=== PATIENT | female | born 1950 | race Caucasian/White ===

== ENCOUNTER 2016-08-27 21:05 | Emergency (ER) | payer MEDICARE, OTHER ==
[~2016-08-27] VITALS: Ht 152.4 cm; Wt 96.5 kg
[2016-08-27 21:21] VITALS: Ht 152.4 cm; Wt 96.5 kg
[2016-08-27] MEDS ORDERED: ONDANSETRON 4 MG INJ IV STA (22:03)
[2016-08-27] MEDS ORDERED: morphine 4 MG/ML VIAL IV STA (22:03)
[2016-08-27 22:07] LABS: ADD SCAN DIFF NO
[2016-08-27 22:08] LABS: BASOPHIL # 0.1 10^3/ul (0.0-0.1); BASOPHILS % 0.4 % (0.0-2.0); EOSINOPHILS # 0.1 10^3/ul (0.0-0.5); EOSINOPHILS % 0.5 % (0.0-7.0); HEMATOCRIT 41.1 % (37.0-47.0); HEMOGLOBIN 13.9 g/dl (12.0-16.0); LYMPHOCYTES # 1.2 10^3/ul (0.8-2.9); MEAN CORPUSCULAR HEMOGLOBIN 30.3 pg (29.0-33.0); MEAN CORPUSCULAR HGB CONC 33.8 g/dl (32.0-37.0); MEAN CORPUSCULAR VOLUME 89.7 fl (82.0-101.0); MEAN PLATELET VOLUME 10.1 fl (7.4-10.4); MONOCYTE # 0.6 10^3/ul (0.3-0.9); MONOCYTES % 5.3 % (0.0-11.0); NEUTROPHIL # 9.9 10^3/ul (1.6-7.5); NEUTROPHILS % 83.5 % (39.0-77.0); PLATELET COUNT 254 10^3/UL (140-415); RED BLOOD COUNT 4.58 10^6/ul (4.20-5.40); WHITE BLOOD COUNT 11.9 10^3/ul (4.8-10.8)
[2016-08-27 22:23] LABS: INR 2.57; PROTIME 27.9 Sec (12.2-14.2); PT RATIO 2.2
[2016-08-27 22:24] LABS: PARTIAL THROMBOPLASTIN TIME 38.4 Sec (25.0-35.0)
[2016-08-27] MEDS ORDERED: WARF4TAB52 PO (22:28)
[2016-08-27] MEDS ORDERED: WARF3TAB PO (22:28)
[2016-08-27] MEDS ORDERED: LOVA20TA PO (22:28)
[2016-08-27] MEDS ORDERED: METO50TA16 PO (22:29)
[2016-08-27] MEDS ORDERED: FAMOTIDINE 20 MG INJ IV ONE (22:30)
[2016-08-27] MEDS ORDERED: LISI1TAB6 PO (22:30)
--- NOTE | 2016-08-27 22:30 | RADRPT ---
PROCEDURE: XR Chest. CLINICAL INDICATION: Shortness of breath. TECHNIQUE: AP Portable chest. COMPARISON: 01/22/2007 FINDINGS: There is moderate cardiomegaly. The lungs are clear. The osseous structures are unremarkable. IMPRESSION: No acute findings. RPTAT: HIKT .Lucas Weeks MD, Date Time Electronically viewed and signed by .Lucas Weeks MD, on 08/27/2016 22:30 .T/
[2016-08-27 22:40] LABS: ANION GAP 13 (8-16); BLOOD UREA NITROGEN 17 mg/dl (7-20); CALCIUM 9.2 mg/dl (8.4-10.2); CARBON DIOXIDE 29 mmol/L (21-31); CHLORIDE 98 mmol/L (97-110); CREATININE 0.76 mg/dl (0.44-1.00); GLUCOSE 168 mg/dl (70-220); POTASSIUM 3.4 mmol/L (3.5-5.1); SODIUM 137 mmol/L (135-144)
[2016-08-27 22:51] LABS: B-TYPE NATRIURETIC PEPTIDE 1890 PG/ML (0-125); TROPONIN-I < 0.012 ng/ml (0.00-0.12)
[2016-08-27] MEDS ORDERED: IOHEXOL 350MG/ML 50 ML BTL ONE (22:52)
[2016-08-27] MEDS ORDERED: IOHEXOL 100 ML ONE (22:52)
[2016-08-27] MEDS ORDERED: SOD CHLORIDE 0.9% 100 ML ONE (22:52)
[2016-08-27] MEDS ORDERED: HYDROmorphONE 1 MG/ML SYG IV ONE (22:57)
[2016-08-27] MEDS ORDERED: morphine 10 MG INJ IV ONE (23:00)
--- NOTE | 2016-08-27 23:46 | RADRPT ---
PROCEDURE: CT angiogram of the abdomen with and without contrast. CLINICAL INDICATION: Abdominal pain. TECHNIQUE: CT angiogram of the abdomen and pelvis with contrast was performed on a multi-detector high-resolution CT scanner. The patient was scanned before and after the uncomplicated administrat ion of 125 cc of Omnipaque 350 intravenous contrast. Images were obtained pre contrast, arterial and portal venous phase. Coronal and sagittal reformatted images were obtained from the axial source im ages. 3-D reformatted images were obtained. Images were reviewed on a high-resolution PACS workstati on. One or more of the following dose reduction techniques were used: - Automated exposure control. - Adjustment of the mA and/or kV according to patient size. - Use of iterative reconstruction technique. Exam CTD/vol = 23.14 mGy. Total exam DLP = 2804.40 mGy-cm. COMPARISON: None. FINDINGS: Evaluation of the lung bases demonstrates mild bibasilar atelectasis. Abdomen: The liver is normal in size with no focal mass identified. There is mild dilatation of th e biliary tree. The gallbladder is mildly distended and contains multiple gallstones. The spleen, pancreas and bilateral adrenal glands are within normal limits. Bilateral kidneys are normal in siz e with symmetric enhancement. There is no radiopaque renal or ureteral calculus identified. There is a cyst within the upper pole of the right kidney. There is no hydronephrosis or hydroureter. Th ere is no retroperitoneal adenopathy. The abdominal aorta is of normal caliber with mild scattered atherosclerotic calcifications. The celiac and superior mesenteric arteries are of normal course and caliber. Bilateral renal arteries are within normal limits. The inferior mesenteric artery is pat ent. There is no significant stenosis or occlusion. There is no evidence of aneurysm or dissection . There is no abnormal bowel wall thickening or distension. There is no bowel obstruction or free air . A normal appendix is identified. There is diffuse colonic diverticulosis without evidence of div erticulitis. There is no ascites. Pelvis: The bladder is unremarkable. The uterus and adnexa are within normal limits. There is no significant pelvic adenopathy or free fluid. Evaluation of the osseous structures demonstrates no suspicious lytic or blastic lesion. There is a severe compression deformity of the T12 vertebral body with vertebral planar deformity and mild bony retropulsion. There are mild compression deformities of the L2 and L3 vertebral bodies with up to 40% loss in vertebral body heights. There is diffuse demineralization. IMPRESSION: Mild vascular calcifications reflective of atherosclerosis. Otherwise unremarkable CT angiogram of the abdomen and pelvis. Distended gallbladder containing multiple gallstones. Clinical correlation is recommended and [facility] er evaluation can be made by ultrasound if clinically warranted. Mild biliary ductal dilatation. Diffuse colonic diverticulosis without evidence of diverticulitis. Right renal cyst. Severe compression deformity of T12 with mild bony retropulsion likely related to osteoporosis, age indeterminate. Mild compression deformities of L2 and L3 likely related to osteoporosis, ages indeterminate. .Jeb Stewart MD, Date Time Electronically viewed and signed by .Jeb Stewart MD, on 08/27/2016 23:46 .T/
[2016-08-28 00:34] LABS: ALBUMIN 4.2 g/dl (3.3-4.9); BILIRUBIN,INDIRECT 0.9 mg/dl (0-1.1); BILIRUBIN,TOTAL 0.9 mg/dl (0.2-1.3); TOTAL PROTEIN 8.1 g/dl (6.1-8.1)
--- NOTE | 2016-08-28 01:18 | RADRPT ---
PROCEDURE: Right upper quadrant ultrasound. CLINICAL INDICATION: Abdominal pain. TECHNIQUE: Multiple real-time longitudinal and transverse images of the right upper quadrant of th e abdomen were acquired utilizing a curved array transducer. Images were reviewed on a high-resoluti on PACS workstation. COMPARISON: CT of the abdomen and pelvis dated 08/27/2016. FINDINGS: The pancreas is not well seen. The liver is echogenic. The liver measures 18.2 cm in length. No hepatic lesion or intrahepatic bi liary ductal dilatation is seen. The portal vein is patent with hepatopetal flow. The gallbladder is distended. Sludge and multiple mobile stones are seen within the gallbladder lum en. The gallbladder wall is not thickened. There is no pericholecystic fluid. The common bile duct measures 8 mm in diameter, mildly dilated. A suggestion of parallel echogenic lines is seen in the region of the gallbladder. The right kidney measures 9.9 cm in length. Renal echogenicity is normal. There is no hydronephros is, urinary calculus, or renal mass. There is a 2.3 cm right renal cyst. The visualized portions of the aorta and IVC are unremarkable. IMPRESSION: 1. Distended gallbladder containing stones and multiple stones, but no evidence of cholecystitis. A suggestion of parallel echogenic lines is seen in the region of the gallbladder. This raises the possibility of a stent or drainage catheter in this region, although no such device is seen on the p rior CT. 2. Mildly dilated common bile duct (8 mm). This could be further evaluated with MRCP or ERCP, as cl inically warranted. 3. Hepatomegaly and fatty infiltration of the liver. 4. Poor visualization of the pancreas. RPTAT: HTAR .Marvin Marks MD, MD Date Time Electronically viewed and signed by .Marvin Marks MD, on 08/28/2016 01:18 .R/
--- NOTE | 2016-08-28 01:25 | ERD ---
ER Documentation Chief Complaint Date/Time DATE: 08/28/16 TIME: 01:21 Chief Complaint Epigastric pain since 1630 HPI This is a 66-year-old female who presents to the emergency room for evaluation of abdominal pain. The patient states that she has had abdominal pain for the past 5 hours. She localizes it to the midportion of abdomen states is a achy pain with no radiation. The patient states that she did take Pepcid for this and had no relief of her symptoms so she came to the emergency room for further evaluation. She denies any vomiting associated with this and denies any fevers or chest pain ROS All systems reviewed and are negative except as per history of present illness. Medications Home Meds Reported Medications Lisinopril/Hydrochlorothiazide (Lisinopril-Hctz 20-12.5 mg Tab) 1 Each Tablet, 1 EACH PO BID, TAB 08/27/16 Metoprolol Succinate* (Toprol XL*) 50 Mg Tab.er.24h, 50 MG PO DAILY, #30 TAB 08/27/16 Lovastatin* (Lovastatin*) 20 Mg Tablet, 20 MG PO HS, TAB 08/27/16 Warfarin Sodium* (Coumadin*) 3 Mg Tablet, 3 MG PO DAILY, TAB MON,WED,FRI,SAT,SUN 08/27/16 Warfarin Sodium* (Warfarin Sodium*) 4 Mg Tablet, 4 MG PO DAILY, TAB TUE,THUR 08/27/16 Allergies Allergies: Coded Allergies: No Known Allergy (Unverified , 08/27/16) PMhx/Soc Hx Cardiac Disorders: Yes (A-fib HTN) Hx Alcohol Use: No Hx Substance Use: No Hx Tobacco Use: No Smoking Status: Never smoker Physical Exam Vitals Vital Signs Date Time Temp Pulse Resp B/P Pulse Ox O2 Delivery O2 Flow Rate FiO2 08/27/16 23:38 79 12 120/85 99 Room Air 08/27/16 21:21 98.3 107 20 166/83 98 Physical Exam INITIAL VITAL SIGNS: Reviewed by me GENERAL: The patient is well developed and appropriate for usual state of health in no apparent distress HEENT: Pupils equal, round, and reactive to light. EOMI. There is no scleral icterus. NECK: C-spine is soft and supple, there is no meningismus. There is no cervical lymphadenopathy. LUNGS: Clear to auscultation bilaterally. There are no rales, wheezes or rhonchi. HEART: Regular rate and rhythm, no murmurs, clicks, rubs or gallops. ABDOMEN: Epigastric tenderness to palpation, negative Morrison sign, soft, non- tender, non-distended. There are bowel sounds in all four quadrants. No rebound or guarding. EXTREMITIES: There is no peripheral cyanosis or edema. No focal swelling or erythema. NEUROLOGICAL: The patient moves all four extremities with 5/5 strength. Cranial nerves II - XII are intact. Normal gait. Alert and oriented SKIN: There is no apparent rash or petechiae. HEME/LYMPHATIC: There is no evidence of excessive bruising or lymphedema. PSYCHIATRIC: The patient does not appear anxious or depressed. Result Diagram: 08/27/16213808/27/162138 Results 24 hrs Laboratory Tests Test 08/27/16 21:39 08/27/16 22:00 White Blood Count 11.910^3/ul Red Blood Count 4.5810^6/ul Hemoglobin 13.9g/dl Hematocrit 41.1% Mean Corpuscular Volume 89.7fl Mean Corpuscular Hemoglobin 30.3pg Mean Corpuscular Hemoglobin Concent 33.8g/dl Red Cell Distribution Width 12.0% Platelet Count 24121^3/UL Mean Platelet Volume 10.1fl Neutrophils % 83.5% Lymphocytes % 10.0% Monocytes % 5.3% Eosinophils % 0.5% Basophils % 0.4% Nucleated Red Blood Cells % 0.0/100WBC Neutrophils # 9.910^3/ul Lymphocytes # 1.210^3/ul Monocytes # 0.610^3/ul Eosinophils # 0.110^3/ul Basophils # 0.110^3/ul Nucleated Red Blood Cells # 0.010^3/ul Prothrombin Time 27.9Sec Prothrombin Time Ratio 2.2 INR International Normalized Ratio 2.57 Activated Partial Thromboplast Time 38.4Sec Sodium Level 137mmol/L Potassium Level 3.4mmol/L Chloride Level 98mmol/L Carbon Dioxide Level 29mmol/L Anion Gap 13 Blood Urea Nitrogen 17mg/dl Creatinine 0.76mg/dl Glucose Level 168mg/dl Calcium Level 9.2mg/dl Troponin I < 0.012ng/ml B-Type Natriuretic Peptide 1890PG/ML Total Bilirubin 0.9mg/dl Direct Bilirubin 0.00mg/dl Indirect Bilirubin 0.9mg/dl Aspartate Amino Transf (AST/SGOT) 28IU/L Alanine Aminotransferase (ALT/SGPT) 27IU/L Alkaline Phosphatase 82IU/L Total Protein 8.1g/dl Albumin 4.2g/dl Current Medications Medications (Trade) Dose Ordered Sig/Anali Route PRN Reason Start Time Stop Time Status Last Admin Dose Admin Morphine Sulfate (morphine) 4 mg ONCE STAT IV 08/27/16 22:03 08/27/16 22:04 DC 08/27/16 22:11 Famotidine (Pepcid Iv) 20 mg ONCE ONCE IV 08/27/16 22:30 08/27/16 22:31 DC 08/27/16 22:10 Ondansetron HCl (Zofran Inj) 4 mg ONCE STAT IV 08/27/16 22:03 08/27/16 22:04 DC 08/27/16 22:11 Morphine Sulfate (morphine) 6 mg ONCE ONCE IV 08/27/16 23:00 08/27/16 23:01 DC 08/27/16 22:39 IV Flush 10 ml 10 ml STK-MED ONCE .ROUTE 08/27/16 22:52 08/27/16 22:53 DC 08/27/16 23:11 Sodium Chloride 100 ml @ ud STK-MED ONCE .ROUTE 08/27/16 22:52 08/27/16 22:53 DC 08/27/16 23:11 Iohexol (Omnipaque) 100 ml @ ud STK-MED ONCE .ROUTE 08/27/16 22:52 08/27/16 22:53 DC 08/27/16 23:11 Iohexol (Omnipaque 350mg/ ml) 50 ml STK-MED ONCE .ROUTE 08/27/16 22:52 08/27/16 22:53 DC 08/27/16 23:11 Hydromorphone HCl (Dilaudid) 1 mg ONCE ONCE IV 08/27/16 22:57 08/27/16 23:01 DC 08/27/16 23:36 Procedures/MDM EKG: Rate/Rhythm: Atrial fibrillation QRS, ST, T-waves: [No changes consistent w/ acute ischemia] Impression: [No evidence of ischemia or arrhythmia] Chest X-ray 1V Interpreted by me: Soft Tissue: No acute abnormalities Bones: No acute abnormalities Mediastinum/Cardiac Silhouette/Lungs: [No acute abnormalities] CT a abdomen pelvis: Mild vascular calcifications reflective of atherosclerosis. Otherwise unremarkable CT angiogram of the abdomen and pelvis. Distended gallbladder containing multiple gallstones. Clinical correlation is recommended and further evaluation can be made by ultrasound if clinically warranted. Mild biliary ductal dilatation. Diffuse colonic diverticulosis without evidence of diverticulitis. Right renal cyst. Severe compression deformity of T12 with mild bony retropulsion likely related to osteoporosis, age indeterminate. Mild compression deformities of L2 and L3 likely related to osteoporosis, ages indeterminate. Ultrasound gallbladder: 1. Distended gallbladder containing stones and multiple stones, but no evidence of cholecystitis. A suggestion of parallel echogenic lines is seen in the region of the gallbladder. This raises the possibility of a stent or drainage catheter in this region, although no such device is seen on the prior CT. 2. Mildly dilated common bile duct (8 mm). This could be further evaluated with MRCP or ERCP, as clinically warranted. 3. Hepatomegaly and fatty infiltration of the liver. 4. Poor visualization of the pancreas. This 66-year-old female presents to the emergency room for evaluation of abdominal pain. When I evaluated this patient she was in atrial fibrillation. And she was complaining of abdominal pain which I elicited when I palpated the epigastric region. This patient did originally have lab work drawn including a troponin which was negative, and a chest x-ray. This patient was given morphine for pain however morphine did not improve her pain. She was given a second dose of morphine without resolution of her pain. At that point the patient was given 1 mg of Dilaudid. My concern at that time was for mesenteric ischemia as this patient's pain was slightly out of proportion to her examination and she does have a history of atrial fibrillation. CT a of the abdomen and pelvis reveals a distended gallbladder, with no mesenteric ischemia. I did obtain ultrasound of the gallbladder which did confirm distended gallbladder containing stones but no evidence of cholecystitis. This patient does have mildly dilated common bile duct at 8 mm however she has no elevations in the bilirubin or LFTs. My suspicion is that this patient is suffering from biliary colic secondary to gallstones. The patient will be discharged home at this time with a prescription for [place] for pain, and will be given a referral for outpatient general surgery. Advised her to return immediately to the emergency room if her pain were to worsen and she verbalized understanding. The patient's pain is under control at this time and she is ambulating in the ER without difficulty Departure Diagnosis: Primary Impression: Biliary colic Additional Impression: Gallstones without obstruction of gallbladder Condition: Stable MARIANN EISENBERG DO August 28, 2016 01:25
[2016-08-28] MEDS ORDERED: HYDR-906 PO (01:26)
[2016-08-28] MEDS ORDERED: ONDANSETRON 4 MG INJ IV STA (01:28)
[2016-08-28 01:29] LABS: ADD UMIC YES; URINE BILIRUBIN (Dip) NEGATIVE (NEGATIVE); URINE BLOOD (Dip) TRACE (NEGATIVE); URINE COLOR LT. YELLOW (YELLOW); URINE GLUCOSE (Dip) NEGATIVE (NEGATIVE); URINE KETONES (Dip) NEGATIVE (NEGATIVE); URINE LEUKOCYTE ESTERASE (Dip) NEGATIVE (NEGATIVE); URINE NITRITE (Dip) NEGATIVE (NEGATIVE); URINE TOTAL PROTEIN (Dip) NEGATIVE (NEGATIVE); URINE UROBILINOGEN (Dip) 2.0 E.U./dL (0.1-1.0)
[2016-08-28] MEDS ORDERED: ONDA4TAB8 PO (01:29)
[2016-08-28 01:40] LABS: SQUAMOUS EPITHELIAL CELL,UR OCCASIONAL; URINE RBCS 0-2 /HPF (0)
[2016-08-28 01:52] VITALS: BP 115/78; PULSE 78; RESP 12; TEMP 98.1
== END 2016-08-28 01:54 | disposition home or self-care (01) ==
LOC: E/R 21:05
DX: K80.70 Calculus of gallbladder and bile duct without cholecystitis without obstruction (principal); I10 Essential (primary) hypertension; Z79.01 Long term (current) use of anticoagulants
CPT/HCPCS: 36415; 71010; 75635; 76705; 80048; 80076; 81001; 83880; 84484; 85025; 85610; 85730; 96374; 96375; 96376; 99285; J1170; J2270; J2405; Q9967; 81003; 93005

== ENCOUNTER 2016-12-22 00:11 | Inpatient (IN) | payer MEDICARE, MEDICAID ==
[~2016-12-22] VITALS: Ht 175.3 cm; Wt 89.4 kg
[~2016-12-22 00:11] MED LIST: HYDR-906 PO; LISI1TAB6 PO; LOVA20TA PO; METO50TA16 PO; ONDA4TAB8 PO; WARF3TAB PO; WARF4TAB52 PO
[2016-12-22] MEDS ORDERED: SOD CHLORIDE 0.9% 500 ML IV STA (04:22)
[2016-12-22] MEDS ORDERED: ONDANSETRON 4 MG INJ IV STA (04:22)
[2016-12-22] MEDS ORDERED: morphine 4 MG/ML VIAL IV STA (04:22)
--- NOTE | 2016-12-22 04:56 | RADRPT ---
PROCEDURE: ULTRASOUND LIMITED ABDOMEN CLINICAL INDICATION: 66-year-old female with abdominal pain. TECHNIQUE: Multiple sonographic of the right upper quadrant of the abdomen were obtained. The imag es were reviewed on a PACS workstation. COMPARISON: Right upper quadrant ultrasound August 28, 2016. FINDINGS: The pancreas is not well visualized secondary to overlying bowel gas. The liver displays diffuse increase echogenicity consistent with fatty infiltration. The liver measu res 18.4 cm in length. No evidence of intrahepatic biliary ductal dilatation is seen. The portal an d hepatic veins are unremarkable. The gallbladder contains multiple small shadowing stones. The gallbladder wall thickness is at the upper limits of normal measuring 3.0 mm. No pericholecystic fluid is seen. The common bile duct connie ures 8.7 mm and is dilated. The right kidney displays normal echogenicity. The right kidney measures 9.2 cm in maximal length. N o caliectasis or hydronephrosis is seen. There is a right upper pole renal cyst measuring 2.7 x 2.2 x 2.0 cm. No free fluid is seen. IMPRESSION: 1. Hepatic steatosis. 2. Cholelithiasis with dilated common bile duct. 3. Right renal cyst. .Rehna Deluna MD, MD Date Time Electronically viewed and signed by .Rehan Deluna MD, on 12/22/2016 04:56 .Echo/
[2016-12-22 06:46] LABS: BASOPHIL # 0.1 10^3/ul (0.0-0.1); BASOPHILS % 0.7 % (0.0-2.0); EOSINOPHILS # 0.1 10^3/ul (0.0-0.5); EOSINOPHILS % 1.1 % (0.0-7.0); HEMATOCRIT 41.2 % (37.0-47.0); HEMOGLOBIN 13.4 g/dl (12.0-16.0); LYMPHOCYTES # 1.4 10^3/ul (0.8-2.9); LYMPHOCYTES % 16.8 % (15.0-51.0); MEAN CORPUSCULAR HEMOGLOBIN 28.2 pg (29.0-33.0); MEAN CORPUSCULAR HGB CONC 32.5 g/dl (32.0-37.0); MEAN CORPUSCULAR VOLUME 86.7 fl (82.0-101.0); MEAN PLATELET VOLUME 10.5 fl (7.4-10.4); MONOCYTE # 0.6 10^3/ul (0.3-0.9); MONOCYTES % 6.9 % (0.0-11.0); NEUTROPHILS % 74.3 % (39.0-77.0); PLATELET COUNT 240 10^3/UL (140-415); RED BLOOD COUNT 4.75 10^6/ul (4.20-5.40); RED CELL DISTRIBUTION WIDTH 12.8 % (11.5-14.5); WHITE BLOOD COUNT 8.4 10^3/ul (4.8-10.8)
--- NOTE | 2016-12-22 06:54 | ERA ---
ER Documentation Chief Complaint Date/Time DATE: 12/22/16 TIME: 06:51 Chief Complaint c/o upper mid abdominal pain no N/V/D. Hx: gallstones HPI This is a 66-year-old female history of gallstones who presents to the emergency room with epigastric and right upper quadrant abdominal pain for the past 24 hours. She describes moderate to severe pain that is colicky and a little bit more constant but alleviated by morphine. She denies any back pain chest pain, pleuritic pain, fevers or chills. The patient has followed up with a surgeon, Dr. Tyler Martin several months ago but has not had follow-up after. ROS All systems reviewed and are negative except as per history of present illness. Medications Home Meds Reported Medications Lisinopril/Hydrochlorothiazide (Lisinopril-Hctz 20-12.5 mg Tab) 1 Each Tablet, 1 EACH PO BID, TAB 08/27/16 Metoprolol Succinate* (Toprol XL*) 50 Mg Tab.er.24h, 50 MG PO DAILY, #30 TAB 08/27/16 Lovastatin* (Lovastatin*) 20 Mg Tablet, 20 MG PO HS, TAB 08/27/16 Warfarin Sodium* (Coumadin*) 3 Mg Tablet, 3 MG PO DAILY, TAB MON,WED,FRI,SAT,SUN 08/27/16 Warfarin Sodium* (Warfarin Sodium*) 4 Mg Tablet, 4 MG PO DAILY, TAB TUE,THUR 08/27/16 Discontinued Scripts Ondansetron Hcl* (Zofran*) 4 Mg Tablet, 4 MG PO Q8H Y for NAUSEA AND/OR VOMITING , #12 TAB Prov:MARIANN EISENBERG DO 08/28/16 Hydrocodone/Acetaminophen ([place] 5-325 Tablet) 1 Each Tablet, 1 TAB PO Q6H Y for PAIN, #15 TAB Prov:MARIANN EISENBERG DO 08/28/16 Allergies Allergies: Coded Allergies: No Known Allergy (Unverified , 08/27/16) PMhx/Soc Hx Cardiac Disorders: Yes (A-fib HTN) Hx Miscellaneous Medical Probl: Yes (gallstones) Hx Alcohol Use: No Hx Substance Use: No Hx Tobacco Use: No Smoking Status: Never smoker FmHx Family History: No diabetes Physical Exam Vitals Vital Signs Date Time Temp Pulse Resp B/P Pulse Ox O2 Delivery O2 Flow Rate FiO2 12/22/16 06:48 97 20 139/100 98 Room Air 12/22/16 00:38 97.8 105 20 146/79 95 Physical Exam General: Well developed, well nourished, no acute distress Head: Normocephalic, atraumatic. Eyes: Pupils equally reactive, EOM intact ENT: Moist mucous membranes Neck: Supple, no lymphadenopathy Respiratory: Lungs clear bilaterally, no distress Cardiovascular: RRR, no murmurs, rubs, or gallops Abdominal: Soft, Mild tenderness to the epigastrium without rebound or guarding , negative Morrison sign : Deferred MSK: No edema, no unilateral swelling, 5/5 strength Neurologic: Alert and oriented, moving all extremities, normal speech, no focal weakness, no cerebellar signs Skin: No rash Psych: Normal mood Result Diagram: 12/22/16 0546 12/22/16 0546 Results 24 hrs Laboratory Tests Test 12/22/16 05:46 White Blood Count 8.410^3/ul Red Blood Count 4.7510^6/ul Hemoglobin 13.4g/dl Hematocrit 41.2% Mean Corpuscular Volume 86.7fl Mean Corpuscular Hemoglobin 28.2pg Mean Corpuscular Hemoglobin Concent 32.5g/dl Red Cell Distribution Width 12.8% Platelet Count 74386^3/UL Mean Platelet Volume 10.5fl Neutrophils % 74.3% Lymphocytes % 16.8% Monocytes % 6.9% Eosinophils % 1.1% Basophils % 0.7% Nucleated Red Blood Cells % 0.0/100WBC Neutrophils # (Manual) 6.210^3/ul Lymphocytes # 1.410^3/ul Monocytes # 0.610^3/ul Eosinophils # 0.110^3/ul Basophils # 0.110^3/ul Nucleated Red Blood Cells # 0.010^3/ul Sodium Level 142mmol/L Potassium Level 3.8mmol/L Chloride Level 99mmol/L Carbon Dioxide Level 28mmol/L Anion Gap 19 Blood Urea Nitrogen 15mg/dl Creatinine 1.08mg/dl Glucose Level 119mg/dl Calcium Level 9.7mg/dl Total Bilirubin 1.1mg/dl Direct Bilirubin 0.20mg/dl Indirect Bilirubin 0.9mg/dl Aspartate Amino Transf (AST/SGOT) 407IU/L Alanine Aminotransferase (ALT/SGPT) 155IU/L Alkaline Phosphatase 125IU/L Total Protein 8.6g/dl Albumin 4.3g/dl Globulin 4.30g/dl Albumin/Globulin Ratio 1.00 Lipase 66U/L Current Medications Medications (Trade) Dose Ordered Sig/Anali Route PRN Reason Start Time Stop Time Status Last Admin Dose Admin Sodium Chloride (NS) 500 ml @ 500 mls/hr Q1H STAT IV 12/22/16 04:22 12/22/16 05:21 DC 12/22/16 04:22 Morphine Sulfate (morphine) 4 mg ONCE STAT IV 12/22/16 04:22 12/22/16 04:23 DC 12/22/16 05:53 Ondansetron HCl (Zofran Inj) 4 mg ONCE STAT IV 12/22/16 04:22 12/22/16 04:23 DC 12/22/16 04:22 Ondansetron HCl (Zofran Inj) 4 mg BRIDGE ORDER PRN IV NAUSEA AND/OR VOMITING 12/22/16 08:30 12/23/16 08:29 Acetaminophen (Tylenol Tab) 650 mg ER BRIDGE PRN PO MILD PAIN/FEVER 12/22/16 08:30 12/23/16 08:29 Procedures/MDM EKG, MONITORS, & DIAGNOSTIC IMAGING: EKG: I reviewed and interpreted a 12-lead EKG. Rhythm: Atrial fibrillation, rate controlled ectopy: None Intervals: No abnormalities ST segments: No elevations or depressions T waves: No contiguous inversions Gallbladder ultrasound: IMPRESSION: 1. Hepatic steatosis. 2. Cholelithiasis with dilated common bile duct. 3. Right renal cyst. LAB INTERPRETATION: Transaminitis without hyperbilirubinemia or lipase elevation consistent with likely choledocholithiasis MEDICAL DECISION MAKING: The patient presents with signs and symptoms concerning for biliary colic. Also consider choledocholithiasis versus early acute cholecystitis. Low clinical concern for cardiopulmonary process. The patient will benefit from laboratory analysis, low threshold for hospitalization. The patient's ultrasound shows evidence of dilated common bile duct concerning for choledocholithiasis. The patient will likely require inpatient hospitalization with GI consultation and general surgery consultation. The patient's pain is controlled with morphine given prior to my arrival. The patient is also found to be in new onset atrial fibrillation that is rate controlled. Risk stratification for anticoagulation as an inpatient would be appropriate. ER COURSE: The patient's pain is improved with pain medication given prior to my arrival. The patient is asymptomatic. Her laboratory testing and diagnostic imaging suggest choledocholithiasis. The patient is seen Dr. Martin in the past. I spoke to her primary care physician who recommends Dr. Witt for gastroenterology. The consult will be made and inpatient hospitalization for MRCP, ERCP and consideration for cholecystectomy will be commenced. I kept the patient and/or family informed of laboratory and diagnostic imaging results throughout the emergency room course. DISPOSITION PLAN: Medical surgical admission for management of choledocholithiasis CONSULTATION: Accepting care team and consultations: I discussed the current laboratory data, diagnostic imaging and emergency care provided. Admitting team: Dr. Burch Admitting team indication: Insurance directed Consulting services: Gastroenterology, Dr. Witt, general surgery Dr. Martin Departure Diagnosis: Primary Impression: Choledocholithiasis Additional Impression: Transaminitis Condition: Stable TERESO MITCHELL MD Dec 22, 2016 06:54
[2016-12-22 06:58] LABS: ALBUMIN 4.3 g/dl (3.3-4.9); BILIRUBIN,DIRECT 0.2 mg/dl (0.00-0.20); BILIRUBIN,INDIRECT 0.9 mg/dl (0-1.1); BILIRUBIN,TOTAL 1.1 mg/dl (0.2-1.3); CALCIUM 9.7 mg/dl (8.4-10.2); CREATININE 1.08 mg/dl (0.44-1.00); POTASSIUM 3.8 mmol/L (3.5-5.1); TOTAL PROTEIN 8.6 g/dl (6.1-8.1)
[2016-12-22 08:22] LABS: TROPONIN-I < 0.012 ng/ml (0.00-0.12)
[2016-12-22 08:24] LABS: T3 UPTAKE 37.9 % (23.5-40.5)
[2016-12-22] MEDS ORDERED: ACETAMINOPHEN 325 MG TAB PO PRN ×2 (08:30→13:00)
[2016-12-22] MEDS ORDERED: ONDANSETRON 4 MG INJ IV PRN (08:30)
[2016-12-22 09:09] LABS: ADD UMIC YES; UR ASCORBIC ACID NEGATIVE (NEGATIVE); UR BILIRUBIN (Dip) NEGATIVE (NEGATIVE); UR BLOOD (Dip) 1+ mg/dL (NEGATIVE); UR CLARITY CLEAR (CLEAR); UR COLOR YELLOW (YELLOW); UR GLUCOSE (Dip) NEGATIVE (NEGATIVE); UR KETONES (Dip) NEGATIVE (NEGATIVE); UR LEUKOCYTE ESTERASE (Dip) NEGATIVE Leu/ul (NEGATIVE); UR NITRITE (Dip) NEGATIVE (NEGATIVE); UR RBC 1 /HPF (0-5); UR SPECIFIC GRAVITY (Dip) 1.011 (1.003-1.030); UR TOTAL PROTEIN (Dip) NEGATIVE (NEGATIVE); UR UROBILINOGEN (Dip) 2+ mg/dL (NEGATIVE)
[2016-12-22 09:14] LABS: INR 3.03; PARTIAL THROMBOPLASTIN TIME 42.4 Sec (25.0-35.0); PROTIME 31.8 Sec (12.2-14.2); PT RATIO 2.5
[2016-12-22] MEDS ORDERED: PHYTONADIONE 5 MG in DEXTROSE 5% 50 ML IVPB ONE (13:00)
[2016-12-22] MEDS ORDERED: hydrALAzine 20 MG INJ IV PRN (13:00)
[2016-12-22] MEDS: SOD CHLORIDE 0.9% 1,000 ML IV SCH (13:00)
[2016-12-22] MEDS ORDERED: LORAZEPAM 2 MG INJ IV PRN (13:00)
--- NOTE | 2016-12-22 15:36 | HP ---
DATE OF ADMISSION: 12/22/2016 ADMITTING DIAGNOSIS: Choledocholithiasis, abdominal pain. HISTORY OF PRESENT ILLNESS: The patient is a 66-year-old, female with chronic atrial fibrillation, hypertension, asthma, lumbar radiculopathy, who presented to the emergency room with acute onset of abdominal pain, nausea and vomiting. The patient has known cholelithiasis, but has been doing well without abdominal pain in the last 2 months. The patient was in usual state of health when she felt the acute onset of the abdominal pain which brought her to the emergency room. The patient was found to have elevated liver function tests by laboratory examination, as well as a dilated common bile duct by gallbladder ultrasound. REVIEW OF SYSTEMS: Unremarkable. No chest pain or shortness of breath. No palpitations. No orthopnea. No fevers, chills, or night sweats. No diarrhea or constipation. No dizziness. No headache. No visual problems. PAST MEDICAL HISTORY: Chronic atrial fibrillation, hypertension, asthma, lumbar radiculopathy, hyperlipidemia, osteoarthritis, and history of meniscal tear. PAST SURGICAL HISTORY: None, except for times 1. FAMILY HISTORY: Unremarkable. SOCIAL HISTORY: Patient is , lives with her . No tobacco. No alcohol use. MEDICATIONS: 1. Lisinopril/hydrochlorothiazide 20/12.5 p.o. b.i.d. 2. Metoprolol-XL 50 mg daily. 3. Simvastatin 20 mg daily. 4. Warfarin 3 mg daily. PHYSICAL EXAMINATION: VITAL SIGNS: Temperature 97.8, pulse 105 on admission, respirations 20, blood pressure 146/79, and pulse oximetry 95 percent on room air. GENERAL: Well-developed, well-nourished female, in no acute distress. Lying on a gurney. SKIN: Without rashes. HEENT: Anicteric sclerae. Extraocular muscles intact. Oropharynx clear without exudate. NECK: No jugular venous distention. 2+ carotid upstrokes, without bruits. No thyromegaly. No lymphadenopathy. CHEST: Clear to auscultation bilaterally. HEART: Irregularly irregular with a 1/6 holosystolic murmur. No S3, no S4. ABDOMEN: Moderate right upper quadrant and epigastric tenderness to palpation. No rebound. Equivocal Morrison sign. Normoactive bowel sounds. Nondistended, moderate obesity. GENITOURINARY: External within normal limits. Internal exam not performed. EXTREMITIES: No cyanosis, clubbing. There is trace bilateral lower extremity edema with medium to large varices, bilateral lower extremities. NEUROLOGIC: Nonfocal. LABORATORY EXAMINATION: Sodium 142, potassium 3.8, chloride 99, bicarbonate 28, BUN 15, creatinine 1.08, glucose 119, calcium 9.7, and total bilirubin 1.1. AST 407, ALT 155, and alkaline phosphatase 125. Troponin less than 0.012. Total protein 8.6, albumin 4.3. Free T4 is 4.24, T4 is 11.2, and lipase is 66. PT is 31.8, INR is 3.03and PTT is 42.4. White blood cell count 8.4, hemoglobin 13.4, hematocrit 41.2, and platelets 240. Urinalysis shows 2 plus urobiligen, 1 plus hemoglobin, otherwise unremarkable. Gallbladder ultrasound shows multiple stones with gallbladder wall thickness at the upper limits of normal. No pericholecystic fluid. The common bile duct measured 8.7 mm and is dilated. ASSESSMENT AND PLAN: The patient is a 66-year-old, female with chronic atrial fibrillation, hypertension, hyperlipidemia, lumbar radiculopathy with possible choledocholithiasis with elevated liver tests, dilated common bile duct with known cholelithiasis. Patient will be admitted to telemetry for further evaluation and treatment. 1. Abdominal pain, possible choledocholithiasis. Appreciate Dr. Witt's input into this case. Patient will undergo MRCP to evaluate for possible stone and if present the patient will need ERCP with possible stent and stone removal. We will also have Dr. Martin from General Surgery evaluated the patient for possible future cholecystectomy. We will give morphine for pain control. Zofran for nausea and vomiting and IV fluids. 2. Chronic atrial fibrillation/hypertension. We will continue the patient's routine medications. We will give vitamin K times one 5 mg because of coagulopathy and Coumadin and the need for procedures. We will give p.r.n. hydralazine for elevated blood pressures. 3. Hyperlipidemia. Continue diet, but hold off on her simvastatin for now. Dictated By: Gutierrez Burch MD /aide/cristiano /Document#: [id number]
--- NOTE | 2016-12-22 18:08 | RADRPT ---
PROCEDURE: MRCP CLINICAL INDICATION: Abdominal pain TECHNIQUE: MRCP was performed on the a high-resolution, high Marija field strength scanner. Patien t was examined without contrast. 3-D coronal rotating MIP images of the biliary tree are available for review. COMPARISON: None FINDINGS: The liver is normal in size and signal intensity. No focal liver lesions or intrahepatic biliary di latation is seen. Multiple gallstones are seen. Mild to moderate intrahepatic biliary dilatation i s seen. The common bile duct is also dilated measuring approximately 12.8 mm.No filling defect in t he common bile duct is seen. Fatty atrophy of the pancreas is seen. The pancreas otherwise normal in size and signal intensity. The pancreatic duct is normal in caliber. No pancreatic mass is seen. A right renal cyst is seen measuring approximately 3 cm in size. The spleen, adrenal glands, and kidneys otherwise unremarkable in size and signal intensity. The kidneys are normal in size and contour and are without evidence of hydronephrosis. No abnormally enlarged lymph nodes or fluid collections are seen. Scattered colon ic diverticulosis is seen. IMPRESSION: 1. Cholelithiasis. 2. Mild to moderate international hepatic biliary dilatation without definite evidence of an obstru cting stone. The possibility of passed stone or ampullary mass cannot be excluded. Consider further evaluation with ERCP as clinically warranted. 3. Colonic diverticulosis. RPTAT: HPNM Physician Renaldo Date Time Electronically viewed and signed by Physician Renaldo on 12/22/2016 18:08 /
[2016-12-22 19:32] VITALS: Ht 175.3 cm; Wt 89.4 kg
[2016-12-22 20:00] VITALS: BP 123/71; PULSE 94; RESP 18
[2016-12-23 05:30] VITALS: BP 119/72; RESP 19
[2016-12-23] MEDS: SOD CHLORIDE 0.9% 1,000 ML IV SCH ×3 (06:22→15:26)
[2016-12-23] MEDS ORDERED: PROPOFOL 200 MG INJ ONE (07:00)
[2016-12-23] MEDS ORDERED: ROCURONIUM 50 MG INJ ONE (07:00)
[2016-12-23 07:37] LABS: BASOPHILS % 0.6 % (0.0-2.0); EOSINOPHILS # 0.2 10^3/ul (0.0-0.5); EOSINOPHILS % 4.3 % (0.0-7.0); HEMATOCRIT 36.1 % (37.0-47.0); HEMOGLOBIN 11.7 g/dl (12.0-16.0); LYMPHOCYTES # 1.2 10^3/ul (0.8-2.9); LYMPHOCYTES % 21.8 % (15.0-51.0); MEAN CORPUSCULAR HEMOGLOBIN 28.7 pg (29.0-33.0); MEAN CORPUSCULAR HGB CONC 32.4 g/dl (32.0-37.0); MEAN CORPUSCULAR VOLUME 88.5 fl (82.0-101.0); MEAN PLATELET VOLUME 10.1 fl (7.4-10.4); MONOCYTE # 0.4 10^3/ul (0.3-0.9); MONOCYTES % 8.3 % (0.0-11.0); PLATELET COUNT 188 10^3/UL (140-415); RED BLOOD COUNT 4.08 10^6/ul (4.20-5.40); RED CELL DISTRIBUTION WIDTH 12.7 % (11.5-14.5); WHITE BLOOD COUNT 5.3 10^3/ul (4.8-10.8)
[2016-12-23 07:46] VITALS: BP 116/71; RESP 19
[2016-12-23 07:52] LABS: INR 1.48; PT RATIO 1.4
[2016-12-23 07:59] LABS: ALBUMIN 3.4 g/dl (3.3-4.9); ALBUMIN/GLOBULIN RATIO 0.97; CALCIUM 8.4 mg/dl (8.4-10.2); CREATININE 0.84 mg/dl (0.44-1.00); POTASSIUM 4.1 mmol/L (3.5-5.1); TOTAL PROTEIN 6.9 g/dl (6.1-8.1)
[2016-12-23] MEDS ORDERED: PHYTONADIONE 10 MG/ML INJ SC ONE (08:30)
[2016-12-23] MEDS: PIPER-TAZO 3.375 GM IV (PMX) 100 ML IVPB SCH ×2 (08:44→14:20)
[2016-12-23] MEDS: METOPROLOL (XL) 50 MG TAB PO SCH (08:46)
[2016-12-23] MEDS: LISINOPRIL 20 MG TAB PO SCH (08:46)
--- NOTE | 2016-12-23 10:22 | PN ---
DATE: 12/23/2016 SUBJECTIVE: Patient is feeling better. No nausea, vomiting, less abdominal pain. OBJECTIVE: VITAL SIGNS: Temperature 97.0, blood pressure 116/71, pulse of 83, respirations 19, pulse oximetry 98 percent on room air. GENERAL: Well-developed, well-nourished female, in no acute distress. CHEST: Clear to auscultation bilaterally. HEART: Irregularly irregular. 2/6 holosystolic murmur. ABDOMEN: Mild epigastric and right upper quadrant tenderness. No rebound. Negative Morrison's. Normal active bowel sounds. LABORATORY EXAMINATION: White blood cell count 5.3, hemoglobin 11.7, hematocrit 36.1, platelets 188. INR of 1.48, PTT of 36. Sodium 144, potassium 4.1, chloride 104, bicarbonate 27, BUN of 16, creatinine 0.84. Total bilirubin 2.0. AST of 228, ALT of 231, alkaline phos 103, albumin 3.4. ASSESSMENT AND PLAN: 1. Choledocholithiasis. Patient with improved liver function tests. Numbers which may suggest passing of the stone. Patient is to undergo ERCP today. Await Dr. Martin's evaluation from a surgical standpoint as the patient will eventually need a cholecystectomy at some point. Continue antibiotics, p.r.n. morphine, as well as Zofran for nausea. 2. Hypertension/atrial fibrillation. Remains stable. Continue patient's medications. Dictated By: Gutierrez Burch MD /aide/roopa /Document#: [id number]
--- NOTE | 2016-12-23 11:37 | CONS ---
Date/Time of Note Date/Time of Note DATE: 12/23/16 TIME: 11:13 Assessment/Plan Assessment/Plan Chief Complaint/Hosp Course 1. Cholelithiasis, possible choledocholithiasis: MRCP shows dilated duct, LFT's elevated, Tbili elevated today; patient with pain epigastric -ERCP today -poss lap romie tomorrow -pain management -ivf -npo 2. Abdominal pain 2/2 above: no n/v -pain management -as above 3. Transaminitis: 2/2 #1, improving -ivf -npo -as above 4. Chronic afib: controlled, on coumadin outpatient -medical management 5. Coagulopathy: on coumadin; received vitamin K; inr improved 6. Hypertension -medical management -encourage weight loss 7. Constipation: -optimize bowel regimen 8. Hypochromic anemia: dilutional vs. other: no acute bleed -monitor and transfuse prn 9. Overweight: BMI: 29 -encourage lifestyle and diet optimization -encourage weight loss 10. Hyperlipidemia: -continue medical management Thank you. Patient seen and examined in collaboration with Dr. Jaime Martin. Problems: Consultation Date/Type/Reason Admit Date/Time Dec 22, 2016 at 09:07 Date of Consultation: Dec 23, 2016 Type of Consultation: surgical Reason for Consultation cholelithiasis; possible choledocholithiasis Referring Provider: DANAE THORNTON MD- Hx of Present Illness Thelma Singh is a 66 yo woman who presents to the ED with complaints of midepigastric pain that began tuesday night a few hours after dinner. She describes the pain as sharp, stabbing, non-radiating and similar to pain that she experienced in August when she was diagnosed with gallstones. the pain became severe that she decided to go to the ED. She denies vomiting but had significant nausea. She denies fevers, chills, chest pain, palpitations, shortness of breath, congested cough, diarrhea or dysuria. MRI shows gallstones and biliary dilatation. Further, she has elevated LFT's. General surgery was called to evaluate. Constitutional: improved, No chills, No febrile Eyes: No visual change ENT: No dysphagia Respiratory: No cough, No shortness of breath Cardiovascular: edema (min pedal), No chest pain, No lightheadedness, No palpitations Gastrointestinal: constipation, flatus, nausea, No diarrhea, No vomiting Genitourinary: No dysuria, No hematuria Musculoskeletal: No back pain Skin: No bruising, No erythema Neurologic: No confusion, No dizziness Psychological: nl mood/affect, No anxiety Past Medical History hypertension Afib constipation Overweight high cholesterol Past Surgical History Family History Significant Family History: no pertinent family hx Social History Alcohol Use: occasionally Smoking Status: Never smoker Drug Use: none Exam/Review of Systems Vital Signs Vitals Vital Signs Date Time Temp Pulse Resp B/P Pulse Ox O2 Delivery O2 Flow Rate FiO2 12/23/16 07:46 97.0 83 19 116/71 98 12/22/16 20:00 Room Air Intake and Output 12/22/16 12/22/16 12/23/16 15:00 23:00 07:00 Intake Total 50.5 ml Balance 50.5 ml Exam Constitutional: alert, oriented Psych: nl mood/affect Head: atraumatic, normocephalic Eyes: nl lids, nl sclera, No icteric ENMT: mucosa pink and moist, nl nasal mucosa & septum Neck: non-tender, supple, No jvd Respiratory: clear to auscultation, normal air movement Cardiovascular: irregular rhythm, nl pulses, No regular rate and rhythm Gastrointestinal: bowel sounds, soft, tender (epigastric), No rebound or guarding Musculoskeletal: nl extremities to inspection, nl gait and stance Extremities: normal pulses, pitting pedal edema (+1) Neurological: nl mental status, nl speech, nl strength Skin: nl turgor, No rash or lesions Results Result Diagram: 12/23/1670312/23/16 0704 Results 24 hrs Laboratory Tests Test 12/23/16 07:04 White Blood Count 5.3 # Red Blood Count 4.08 L Hemoglobin 11.7 L Hematocrit 36.1 L Mean Corpuscular Volume 88.5 Mean Corpuscular Hemoglobin 28.7 L Mean Corpuscular Hemoglobin Concent 32.4 Red Cell Distribution Width 12.7 Platelet Count 188 # Mean Platelet Volume 10.1 Neutrophils % 65.0 Lymphocytes % 21.8 Monocytes % 8.3 Eosinophils % 4.3 Basophils % 0.6 Nucleated Red Blood Cells % 0.0 Neutrophils # (Manual) 3.5 Lymphocytes # 1.2 Monocytes # 0.4 Eosinophils # 0.2 Basophils # 0.0 Nucleated Red Blood Cells # 0.0 Prothrombin Time Pending Prothrombin Time Ratio 1.4 INR International Normalized Ratio 1.48 Activated Partial Thromboplast Time 36.0 H Sodium Level 144 Potassium Level 4.1 Chloride Level 104 Carbon Dioxide Level 27 Anion Gap 17 H Blood Urea Nitrogen 16 Creatinine 0.84 Glucose Level 86 Calcium Level 8.4 Total Bilirubin 2.0 H Direct Bilirubin 0.00 # Indirect Bilirubin 2.0 H Aspartate Amino Transf (AST/SGOT) 228 H Alanine Aminotransferase (ALT/SGPT) 231 H Alkaline Phosphatase 103 Total Protein 6.9 # Albumin 3.4 Globulin 3.50 H Albumin/Globulin Ratio 0.97 Medications Medications Current Medications Metoprolol Succinate (Toprol Xl) 50 mg DAILY PO Last administered on 12/23/16 08:46; Admin Dose 50 MG; Start 12/23/16 at 09:00 Lisinopril (Zestril) 20 mg AM PO Last administered on 12/23/16 08:46; Admin Dose 20 MG; Start 12/23/16 at 09:00 Ondansetron HCl (Zofran Inj) 4 mg Q4 PRN IV NAUSEA AND/OR VOMITING; Start 12/22 at 13:00 Morphine Sulfate (morphine) 2 mg Q3 PRN IV PAIN LEVEL 6-10; Start 12/22/16 at 13:00 Hydralazine HCl (Apresoline) 5 mg Q6 PRN IV sbp>180 or dbp>95; Start 12/22/16 at 13:00 Acetaminophen (Tylenol Tab) 650 mg Q6 PRN PO PAIN AND OR ELEVATED TEMP; Start 12/22/16 at 13:00 Lorazepam 0.5 mg 0.5 mg HS PRN IV insomnia; Start 12/22/16 at 13:00 Sodium Chloride 1,000 ml @ 100 mls/hr Q10H IV Last administered on 12/23/16 06:22; Admin Dose 100 MLS/HR; Start 12/22/16 at 13:00 Piperacillin Sod/ Tazobactam Sod (Zosyn 3.375gm/ 100 ml (Pmx)) 100 ml @ 200 mls /hr Q8 IVPB Last administered on 12/23/16 08:44; Admin Dose 200 MLS/HR; Start 12/23/16 at 07:00 TOMMY THACKER NP Dec 23, 2016 11:24
[2016-12-23] MEDS ORDERED: IOHEXOL 300MG/ML 30 ML BTL ONE (11:38)
[2016-12-23] MEDS ORDERED: MIDAZOLAM 1 MG/ML 2 ML INJ ONE (11:42)
[2016-12-23] MEDS ORDERED: FENTAnyl 50 MCG/ML VIAL ONE (11:42)
[2016-12-23] MEDS ORDERED: CEFAZOLIN 1 GM INJ ONE (11:58)
[2016-12-23] MEDS ORDERED: PHENYLephrine (100 MCG/ML) 5ML SYG ONE (11:58)
[2016-12-23] MEDS ORDERED: METOCLOPRAMIDE 10 MG INJ ONE (12:18)
[2016-12-23] MEDS ORDERED: SUGAMMADEX SODIUM 200 MG/2 ML VIAL IV ONE (12:18)
[2016-12-23] MEDS ORDERED: DEXAMETHASONE 4 MG/ML 1 ML INJ ONE (12:18)
[2016-12-23] MEDS ORDERED: ONDANSETRON 4 MG INJ ONE (12:18)
--- NOTE | 2016-12-23 12:23 | OPPN ---
Date/Time of Note Date/Time of Note DATE: 12/23/16 TIME: 12:22 Operative Report Preoperative Diagnosis She will biliary stone Postoperative Diagnosis Same Operation/Procedure Performed 1 sphincterotome 2. Removal of small stone 3. Papillary stenosis 4. Placement of stent 10 Uzbek 5 cm 5. Dilated bile duct #6 fluoroscopy time was 2 second Estimated blood loss: minimal Transfusion Required: no Specimen: none Grafts/Implants: none Complications: no EVELYNE VICTORIA MD Dec 23, 2016 12:23
[2016-12-23] MEDS ORDERED: ONDANSETRON 4 MG INJ IV PRN (12:30)
[2016-12-23] MEDS ORDERED: FENTAnyl 50 MCG/ML VIAL IV PRN ×3 (12:30)
[2016-12-23] MEDS ORDERED: METOCLOPRAMIDE 10 MG INJ IV PRN (12:30)
[2016-12-23] MEDS ORDERED: hydrALAzine 20 MG INJ IV PRN (12:30)
[2016-12-23] MEDS ORDERED: LABETALOL HCL 20MG INJ IV PRN (12:30)
[2016-12-23] MEDS ORDERED: MEPERIDINE 25 MG INJ IV PRN (12:30)
[2016-12-23] MEDS ORDERED: DIPHENHYDRAMINE 50 MG INJ IV PRN (12:30)
[2016-12-23] MEDS ORDERED: EPHEDrine SULFATE 50 MG/5 ML SYG IV PRN (12:30)
[2016-12-23 12:32] VITALS: BP 126/78; PULSE 82; RESP 18
[2016-12-23 13:44] VITALS: BP 124/74; PULSE 90; RESP 18
--- NOTE | 2016-12-23 14:14 | GILP ---
DATE OF PROCEDURE: 12/23/2016 ENDOSCOPIST: Mathew Witt MD PROCEDURE PERFORMED: Endoscopic retrograde cholangiopancreatography, sphincterotomy, removal of the stone, and stenting. INDICATION: A 66-year-old female undergoing this procedure for dilated biliary system, biliary colicky pain, and abnormal LFT. The purpose is to evaluate the biliary system and perform therapeutic endoscopy at the same time. The risks of the procedure, related and unrelated complications, anesthetic risk, and alternatives were thoroughly discussed with the patient, including bleeding, perforation, pancreatitis, severity of the pancreatitis. She understood, agreed, and consent for it. DESCRIPTION OF PROCEDURE: The patient was brought to the OR, room number 2, intubated, and placed in the prone position. She was given Ancef prior to the procedure. Indocin suppository was administered to prevent post ERCP-induced pancreatitis. The ERCP scope passed with much ease into the esophagus, advanced further down into the stomach and duodenum. The ampulla was identified, which appeared small. Selectively cannulated. 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 Cholangiogram done via biliary system appeared dilated. The distal part was not well visualized. I decided at this point to proceed with sphincterotomy. Small sphincterotomy was done. At this point, we used a balloon, 12 mm, inserted into the bile duct. Cholesterol small stone came out and mud came out. Bile duct was swept multiple times, but the drainage was not good. There was some oozing which stopped on its own, very minimal oozing, and at this point, deployed the stent 10-Yakut, 5 cm. After the deployment of the stent, the drainage was excellent. Bile was yellowish in color. No blood was seen. Scope was removed, with excellent patient tolerance. Fluoroscopy time was 2 seconds. IMPRESSION: 1. Papillary stenosis. Successful sphincterotomy done. 2. Small stone and mud removed. 3. Stent deployed, 10-Yakut, 5 cm. Excellent drainage established. 4. Dilated biliary system. 5. Plan Continue present care. If the patient is asymptomatic, we will start her on a liquid diet. She is scheduled for laparoscopic cholecystectomy tomorrow. Dictated By: Mathew Witt MD /aide/uli /Document#: [id number] CC: Gutierrez Burch MD; Jaime Martin MD;*[facility]*
--- NOTE | 2016-12-23 14:32 | CONS ---
DATE OF ADMISSION: 12/22/2016 DATE OF CONSULTATION: 12/23/2016 REASON FOR CONSULTATION: Choledocholithiasis, dilated biliary system, abnormal LFT, and biliary colic. Dear Dr. Gutierrez Burch, thank you for asking me to evaluate your patient. HISTORY OF PRESENT ILLNESS: A 65-year-old female with a history of chronic atrial fibrillation, hypertension, asthma, and lumbar radiculopathy who presented to the Emergency Room for abdominal pain, nausea and vomiting. The pain was confined to the right upper quadrant. The patient had symptomatic gallstones in the past and was supposed to get laparoscopic cholecystectomy done. No fever, no chills, no chest pain, no shortness of breath. In the ER, she was evaluated and had dilated biliary system. MRCP done. Bile duct was almost 12.8 mm in diameter with intrahepatic duct dilatation, but no filling defect was identified. The patient continues to remain symptomatic. REVIEW OF SYSTEMS: Otherwise negative. PAST MEDICAL HISTORY: As described. PAST SURGICAL HISTORY: . FAMILY HISTORY: Nothing contributory. SOCIAL HISTORY: She is , lives with her . No alcohol and no tobacco. MEDICATIONS: All reviewed. She is on warfarin, simvastatin, metoprolol, and lisinopril. PHYSICAL EXAMINATION: VITAL SIGNS: Stable. ABDOMEN: Soft. Tenderness in right upper quadrant. Bowel sounds good. No mass in upper abdomen. No peritonitis. CARDIAC: No murmur, gallop or clicks. LUNGS: Clear. EXTREMITIES: No edema. NEUROLOGIC: Grossly within normal limits. LABORATORY: Reviewed. SGOT and SGPT were both elevated; SGOT was 407 and SGPT 155. INR was brought down to 1.48. Hematocrit was 36. Alkaline phosphatase is 125, total bilirubin was 1.1. IMPRESSION: 1. Biliary colicky pain. Associated with dilated biliary system with abnormal LFT, bile stone in the ampullary area or pre- ampullary area cannot be ruled out. An MRCP can miss the stone and this may be by 20 percent. 2. Gallstones. 3. Hypertension. 4. Chronic atrial fibrillation. 5. Coagulopathy, which is almost corrected. PLAN: To proceed with ERCP, continue IV antibiotic, keep the patient NPO, and we will give 1 dose of vitamin K to bring INR down further. I discussed with the patient and she has agreed and I will discuss the case also with Dr. Jaime Martin. Dictated By: Mathew Witt MD /aide/uli /Document#: [id number] CC: Gutierrez Burch MD;*[facility]*
[2016-12-23 16:05] VITALS: BP 133/80; PULSE 93; RESP 18
[2016-12-23] MEDS: ONDANSETRON 4 MG INJ IV PRN (16:31)
[2016-12-23] MEDS: morphine 2 MG INJ IV PRN (16:32)
--- NOTE | 2016-12-23 16:36 | RADRPT ---
PROCEDURE: XR Chest 1 View. CLINICAL INDICATION: Abnormal breath sounds, preop. TECHNIQUE: AP view of the chest was obtained. COMPARISON: August 27, 2016 FINDINGS: The heart size is within normal limits. Calcified atherosclerosis is noted in the aorta. Subsegment al atelectasis is noted in the left lower lobe. No consolidations are identified. No pneumothorax i s seen. Osseous structures are intact. IMPRESSION: Calcified atherosclerosis in the aorta. Subsegmental atelectasis in the left lower lobe. RPTAT: AA .José Luis Granado MD, Date Time Electronically viewed and signed by .José Luis Granado MD, on 12/23/2016 16:35 .P/
--- NOTE | 2016-12-23 17:04 | RADRPT ---
PROCEDURE: Intraoperative imaging for ERCP with fluoroscopy. CLINICAL INDICATION: Right upper quadrant pain. Intraoperative. TECHNIQUE: 4 images of the right upper quadrant of the abdomen were obtained in the operating room with an image intensifier. No radiologist was in attendance. 3.3 seconds of fluoroscopy time was used. COMPARISON: MRCP dated 12/22/2016. FINDINGS: Images demonstrate the endoscope in position. Contrast was injected into the common bile duct. The common bile duct is dilated. No definite lesion is visualized. The final image demonstrates a com mon bile duct stent in satisfactory position. IMPRESSION: 1. ERCP as described above. RPTAT: QQ .Smith Nelson MD, MD Date Time Electronically viewed and signed by .Smith Nelson MD, on 12/23/2016 17:03 .R/
[2016-12-23] MEDS ORDERED: PANTOPRAZOLE 40 MG INJ IV ONE (18:00)
[2016-12-23 19:10] VITALS: BP 118/66; RESP 20
[2016-12-24 00:36] VITALS: BP 136/94; RESP 20
[2016-12-24] MEDS: PIPER-TAZO 3.375 GM IV (PMX) 100 ML IVPB SCH ×5 (00:46→21:15)
[2016-12-24] MEDS: morphine 2 MG INJ IV PRN ×2 (00:49→12:40)
[2016-12-24] MEDS: SOD CHLORIDE 0.9% 1,000 ML IV SCH ×2 (00:49→14:51)
[2016-12-24 05:22] LABS: BASOPHILS % 0.2 % (0.0-2.0); EOSINOPHILS % 0.2 % (0.0-7.0); HEMOGLOBIN 11.3 g/dl (12.0-16.0); LYMPHOCYTES # 0.9 10^3/ul (0.8-2.9); LYMPHOCYTES % 14.1 % (15.0-51.0); MEAN CORPUSCULAR HGB CONC 32.3 g/dl (32.0-37.0); MEAN CORPUSCULAR VOLUME 86.8 fl (82.0-101.0); MEAN PLATELET VOLUME 10.4 fl (7.4-10.4); MONOCYTE # 0.4 10^3/ul (0.3-0.9); MONOCYTES % 5.9 % (0.0-11.0); NEUTROPHILS % 79.3 % (39.0-77.0); PLATELET COUNT 213 10^3/UL (140-415); RED BLOOD COUNT 4.03 10^6/ul (4.20-5.40); RED CELL DISTRIBUTION WIDTH 12.8 % (11.5-14.5); WHITE BLOOD COUNT 6.5 10^3/ul (4.8-10.8)
[2016-12-24 06:14] LABS: ALBUMIN 3.3 g/dl (3.3-4.9); ALBUMIN/GLOBULIN RATIO 0.94; BILIRUBIN,INDIRECT 1.2 mg/dl (0-1.1); BILIRUBIN,TOTAL 1.2 mg/dl (0.2-1.3); CALCIUM 8.3 mg/dl (8.4-10.2); CREATININE 0.87 mg/dl (0.44-1.00); POTASSIUM 4.1 mmol/L (3.5-5.1); TOTAL PROTEIN 6.8 g/dl (6.1-8.1)
[2016-12-24] MEDS: PANTOPRAZOLE 40 MG INJ IV SCH (07:07)
[2016-12-24 08:22] VITALS: BP 133/97; RESP 18
[2016-12-24] MEDS: METOPROLOL (XL) 50 MG TAB PO SCH (09:00)
[2016-12-24] MEDS: LISINOPRIL 20 MG TAB PO SCH (09:00)
--- NOTE | 2016-12-24 10:00 | PN ---
Date/Time of Note Date/Time of Note DATE: 12/24/16 TIME: 09:51 Assessment/Plan Lines/Catheters IV Catheter Type (from [facility]): Peripheral IV Assessment/Plan Chief Complaint/Hosp Course 1. Cholelithiasis, possible choledocholithiasis: MRCP shows dilated duct, LFT's elevated, Tbili elevated today; patient with pain epigastric; s/p ERCP with sphincterotomy, stent and stone removal; -pending lap romie today -pain management -ivf -npo 2. Abdominal pain 2/2 above: no n/v -pain management -as above 3. Transaminitis: 2/2 #1, continuing improve -ivf -npo -as above 4. Chronic afib: controlled, on coumadin outpatient; on hold currently -medical management 5. Coagulopathy: on coumadin; received vitamin K; inr improved 6. Hypertension: controlled -medical management -encourage weight loss 7. Constipation: -optimize bowel regimen 8. Hypochromic anemia: dilutional vs. other: no acute bleed -monitor and transfuse prn 9. Overweight: BMI: 29 -encourage lifestyle and diet optimization -encourage weight loss 10. Hyperlipidemia with aortic calcification: -continue medical management 11. LLL atelectasis: No sob, maintaining O2 sats -IS -ambulate -management per medical team Thank you. Patient seen and examined in collaboration with Dr. Jaime Martin. Problems: Subjective 24 Hr Interval Summary S/p sphincterotomy, stone removal and stent placement by Dr. Witt. Pending surgery today. Complains of burning pain in epigastric area, relieved by protonix. No fevers, chills, sob, congested cough, n/v/d/dysuria. Exam/Review of Systems Vital Signs Vitals Vital Signs Date Time Temp Pulse Resp B/P Pulse Ox O2 Delivery O2 Flow Rate FiO2 12/24/16 08:22 98.0 86 18 133/97 96 12/23/16 16:05 Room Air Intake and Output 12/23/16 12/23/16 12/24/16 15:00 23:00 07:00 Intake Total 100 ml 200 ml 900 ml Output Total 200 ml Balance 100 ml 200 ml 700 ml Exam Free Text/Dictation Constitutional: alert, oriented Psych: nl mood/affect Head: atraumatic, normocephalic Eyes: nl lids, nl sclera, No icteric ENMT: mucosa pink and moist, nl nasal mucosa & septum Neck: non-tender, supple, No jvd Respiratory: clear to auscultation, diminished at base, normal air movement Cardiovascular: irregular rhythm, nl pulses, No regular rate and rhythm Gastrointestinal: bowel sounds, soft, min tender (epigastric), No rebound or guarding Musculoskeletal: nl extremities to inspection, nl gait and stance Extremities: normal pulses, pitting pedal edema (+1) Neurological: nl mental status, nl speech, nl strength Skin: nl turgor, No rash or lesions Results Result Diagram: 12/24/16 0448 12/24/16 0448 TOMMY THACKER NP Dec 24, 2016 10:00
--- NOTE | 2016-12-24 10:34 | PN ---
DATE: 12/24/2016 SUBJECTIVE: The patient complains of burning in the epigastric area. It did get better after receiving medication last night. The patient otherwise without complaint. OBJECTIVE: VITAL SIGNS: Temperature 98.0, pulse 86 and irregular, respiratory rate 18, blood pressure 133/97, oxygen saturation 96 percent on room air. GENERAL: A well-developed, well-nourished female, in no acute distress. Lying in bed. CHEST: Clear to auscultation bilaterally. HEART: Irregularly irregular with a 2/6 holosystolic murmur. ABDOMEN: Mild to moderate epigastric and right upper quadrant tenderness to palpation. Decreased bowel sounds. Moderate obesity. EXTREMITIES: No cyanosis, clubbing. Trace bilateral lower extremity edema. LABORATORY EXAMINATION: Hemoglobin of 11.3, hematocrit 35, white blood cell count 6.5, platelets 213. Sodium 140, potassium 4.1, chloride 108, bicarbonate 23, BUN of 20, creatinine 0.87, glucose 106, total bili 1.2, AST 103, ALT 154, amylase 293. Chest x-ray unremarkable. ASSESSMENT AND PLAN: 1. Choledocholithiasis with cholelithiasis. The patient is doing slightly better status post sphincterotomy, ERCP and stent placement. Patient is to undergo laparoscopic cholecystectomy today. For the cholelithiasis. The patient has some epigastric burning, probably related to bile reflux and somewhat improved with Protonix. Will continue with this. The patient is no oral for surgery will not be able to give any oral medications at this time. 2. Atrial fibrillation/hypertension remained stable. Patient will need to be restarted on her Coumadin postoperatively for stroke prophylaxis. 3. Hyperlipidemia. Continue with diet and home medications for now. Dictated By: Gutierrez Burch MD /aide/roopa /Document#: [id number]
--- NOTE | 2016-12-24 11:31 | CONS ---
Date/Time of Note Date/Time of Note DATE: 12/24/16 TIME: 11:29 Assessment/Plan Assessment/Plan Additional Assessment/Plan IMPRESSION: 1. Biliary colicky pain. Associated with dilated biliary system with abnormal LFT, bile stone in the ampullary area or pre- ampullary area cannot be ruled out. An MRCP can miss the stone and this may be by 20 percent. 2. Gallstones. 3. Hypertension. 4. Chronic atrial fibrillation. 5. Coagulopathy, which is almost corrected. 7. Status post a sphincterotomy removal of the stone and placement of stent. And had ampullary stenosis Plan Proceed with lap romie Patient needs her stent to be removed after 3 months discussed with the patient and the daughter Consultation Date/Type/Reason Admit Date/Time Dec 22, 2016 at 09:07 Initial Consult Date 12/23/16 Type of Consultation: surgical Referring Provider: DANAE THORNTON MD- 24 HR Interval Summary Free Text/Dictation Burning sensation in the stomach Constitutional: improved, no complaints Exam/Review of Systems Vital Signs Vitals Vital Signs Date Time Temp Pulse Resp B/P Pulse Ox O2 Delivery O2 Flow Rate FiO2 12/24/16 08:22 98.0 86 18 133/97 96 12/23/16 16:05 Room Air Intake and Output 12/23/16 12/23/16 12/24/16 15:00 23:00 07:00 Intake Total 100 ml 200 ml 900 ml Output Total 200 ml Balance 100 ml 200 ml 700 ml Exam Constitutional: alert, oriented, well developed Psych: nl mood/affect, no complaints Head: atraumatic, normocephalic Eyes: EOMI, PERRL, nl conjunctiva, nl lids, nl sclera ENMT: nl external ears & nose, nl lips & teeth, nl nasal mucosa & septum Neck: non-tender, supple Respiratory: clear to auscultation, normal air movement Cardiovascular: nl pulses, regular rate and rhythm Gastrointestinal: nl liver, spleen, non-tender, soft Musculoskeletal: nl extremities to inspection, nl gait and stance Extremities: normal pulses Neurological: EMPLOYER RELATIONS REPRESENTATIVE II-XII intact, nl mental status, nl speech, nl strength Skin: nl turgor, No rash or lesions Lymph: nl lymph nodes Results Result Diagram: 12/24/16 0448 12/24/16 0448 Results 24 hrs Laboratory Tests Test 12/23/16 20:30 9/1/17 04:48 Urine Test NEGATIVE White Blood Count 6.5 # Red Blood Count 4.03 L Hemoglobin 11.3 L Hematocrit 35.0 L Mean Corpuscular Volume 86.8 Mean Corpuscular Hemoglobin 28.0 L Mean Corpuscular Hemoglobin Concent 32.3 Red Cell Distribution Width 12.8 Platelet Count 213 Mean Platelet Volume 10.4 Neutrophils % 79.3 H Lymphocytes % 14.1 L Monocytes % 5.9 Eosinophils % 0.2 Basophils % 0.2 Nucleated Red Blood Cells % 0.0 Neutrophils # (Manual) 5.1 Lymphocytes # 0.9 Monocytes # 0.4 Eosinophils # 0.0 Basophils # 0.0 Nucleated Red Blood Cells # 0.0 Sodium Level 140 Potassium Level 4.1 Chloride Level 108 Carbon Dioxide Level 23 Anion Gap 13 Blood Urea Nitrogen 20 Creatinine 0.87 Glucose Level 106 Calcium Level 8.3 L Total Bilirubin 1.2 Direct Bilirubin 0.00 Indirect Bilirubin 1.2 H Aspartate Amino Transf (AST/SGOT) 103 H Alanine Aminotransferase (ALT/SGPT) 154 H Alkaline Phosphatase 97 Total Protein 6.8 Albumin 3.3 Globulin 3.50 H Albumin/Globulin Ratio 0.94 Amylase Level 293 H Medications Medications Current Medications Metoprolol Succinate (Toprol Xl) 50 mg DAILY PO Last administered on 12/23/16 08:46; Admin Dose 50 MG; Start 12/23/16 at 09:00 Lisinopril (Zestril) 20 mg AM PO Last administered on 12/23/16 08:46; Admin Dose 20 MG; Start 12/23/16 at 09:00 Ondansetron HCl (Zofran Inj) 4 mg Q4 PRN IV NAUSEA AND/OR VOMITING Last administered on 12/23/16 16:31; Admin Dose 4 MG; Start 12/22/16 at 13:00 Morphine Sulfate (morphine) 2 mg Q3 PRN IV PAIN LEVEL 6-10 Last administered on 12/24/16 00:49; Admin Dose 2 MG; Start 12/22/16 at 13:00 Hydralazine HCl (Apresoline) 5 mg Q6 PRN IV sbp>180 or dbp>95; Start 12/22/16 at 13:00 Acetaminophen (Tylenol Tab) 650 mg Q6 PRN PO PAIN AND OR ELEVATED TEMP; Start 12/22/16 at 13:00 Lorazepam 0.5 mg 0.5 mg HS PRN IV insomnia; Start 12/22/16 at 13:00 Sodium Chloride 1,000 ml @ 100 mls/hr Q10H IV Last administered on 12/24/16 00 :49; Admin Dose 100 MLS/HR; Start 12/22/16 at 13:00 Piperacillin Sod/ Tazobactam Sod (Zosyn 3.375gm/ 100 ml (Pmx)) 100 ml @ 200 mls /hr Q8 IVPB Last administered on 12/24/16 07:07; Admin Dose 200 MLS/HR; Start 12/23/16 at 07:00 Pantoprazole (Protonix Iv) 40 mg DAILY@06 IV Last administered on 12/24/16 07: 07; Admin Dose 40 MG; Start 12/24/16 at 06:00 EVELYNE VICTORIA MD Dec 24, 2016 11:31
[2016-12-24 15:51] VITALS: BP 140/97; RESP 18
[2016-12-24 19:37] VITALS: BP 125/85; RESP 18
[2016-12-24] MEDS: HYDROmorphONE 1 MG/ML SYG IV PRN (21:19)
[2016-12-25 02:00] VITALS: BP_SYST 113; BP_SYST 125; BP_DIAS 67; BP_DIAS 79; RESP 18; RESP 20
[2016-12-25] MEDS: SOD CHLORIDE 0.9% 1,000 ML IV SCH ×3 (02:48→21:02)
[2016-12-25] MEDS: HYDROmorphONE 1 MG/ML SYG IV PRN ×4 (05:07→21:01)
[2016-12-25] MEDS: PIPER-TAZO 3.375 GM IV (PMX) 100 ML IVPB SCH ×3 (05:07→22:33)
[2016-12-25] MEDS: PANTOPRAZOLE 40 MG INJ IV SCH (05:07)
[2016-12-25 05:22] LABS: BASOPHIL # 0.1 10^3/ul (0.0-0.1); BASOPHILS % 0.7 % (0.0-2.0); EOSINOPHILS # 0.1 10^3/ul (0.0-0.5); EOSINOPHILS % 1.9 % (0.0-7.0); HEMATOCRIT 33.5 % (37.0-47.0); HEMOGLOBIN 10.8 g/dl (12.0-16.0); LYMPHOCYTES # 1.4 10^3/ul (0.8-2.9); MEAN CORPUSCULAR HEMOGLOBIN 28.7 pg (29.0-33.0); MEAN CORPUSCULAR HGB CONC 32.2 g/dl (32.0-37.0); MEAN CORPUSCULAR VOLUME 89.1 fl (82.0-101.0); MEAN PLATELET VOLUME 10.6 fl (7.4-10.4); MONOCYTE # 0.5 10^3/ul (0.3-0.9); MONOCYTES % 7.8 % (0.0-11.0); NEUTROPHILS % 68.3 % (39.0-77.0); PLATELET COUNT 188 10^3/UL (140-415); RED BLOOD COUNT 3.76 10^6/ul (4.20-5.40); RED CELL DISTRIBUTION WIDTH 12.9 % (11.5-14.5); WHITE BLOOD COUNT 6.8 10^3/ul (4.8-10.8)
[2016-12-25 05:41] LABS: ALBUMIN 2.8 g/dl (3.3-4.9); ALBUMIN/GLOBULIN RATIO 0.9; BILIRUBIN,INDIRECT 1.3 mg/dl (0-1.1); BILIRUBIN,TOTAL 1.3 mg/dl (0.2-1.3); CALCIUM 8.3 mg/dl (8.4-10.2); CREATININE 0.9 mg/dl (0.44-1.00); POTASSIUM 3.8 mmol/L (3.5-5.1); TOTAL PROTEIN 5.9 g/dl (6.1-8.1)
[2016-12-25 08:08] VITALS: BP 139/91; RESP 19
[2016-12-25] MEDS: LISINOPRIL 20 MG TAB PO SCH (08:22)
[2016-12-25] MEDS: METOPROLOL (XL) 50 MG TAB PO SCH (08:22)
--- NOTE | 2016-12-25 09:27 | PN ---
Date/Time of Note Date/Time of Note DATE: 12/25/16 TIME: 09:10 Assessment/Plan Lines/Catheters IV C[facility]ter Type (from [facility]): Peripheral IV Assessment/Plan Chief Complaint/Hosp Course 1. Cholelithiasis, possible choledocholithiasis: MRCP shows dilated duct, LFT's improved, Tbili improved; patient with continued pain epigastric; s/p ERCP with sphincterotomy, stent and stone removal; amylas/lipase nl -pending lap romie -continue pain management -ivf -cl liquids as tolerated 2. Abdominal pain 2/2 above: no n/v -pain management -as above 3. Transaminitis: 2/2 #1, continuing to improve -ivf -as above 4. Chronic afib: controlled, on coumadin outpatient; on hold currently -medical management 5. Coagulopathy: on coumadin; received vitamin K; inr improved 6. Hypertension: controlled -medical management -encourage weight loss 7. Constipation: -optimize bowel regimen 8. Hypochromic anemia: dilutional vs. other: no acute bleed -monitor and transfuse prn 9. Overweight: BMI: 29 -encourage lifestyle and diet optimization -encourage weight loss 10. Hyperlipidemia with aortic calcification: -continue medical management 11. LLL atelectasis: No sob, maintaining O2 sats -IS -ambulate -management per medical team Thank you. Patient seen and examined in collaboration with Dr. Jaime Martin. Problems: Subjective 24 Hr Interval Summary Surgery cancelled yesterday due to increasing amylase and OR availability. Continues to have abdominal pain, relieved by analgesics. Tolerated clear liquids without n/v. +flatus. No fevers, chills, cp, palpitations, sob, congested cough. Exam/Review of Systems Vital Signs Vitals Vital Signs Date Time Temp Pulse Resp B/P Pulse Ox O2 Delivery O2 Flow Rate FiO2 12/25/16 08:08 98.4 83 19 139/91 97 12/23/16 16:05 Room Air Intake and Output 12/24/16 12/24/16 12/25/16 15:00 23:00 07:00 Intake Total 1100 ml 800 ml 1580 ml Balance 1100 ml 800 ml 1580 ml Exam Free Text/Dictation Constitutional: alert, oriented Psych: nl mood/affect, sad mood Head: atraumatic, normocephalic Eyes: nl lids, nl sclera, No icteric ENMT: mucosa pink and moist, nl nasal mucosa & septum Neck: non-tender, supple, No jvd Respiratory: clear to auscultation, diminished at base, normal air movement Cardiovascular: irregular rhythm, nl pulses, No regular rate and rhythm Gastrointestinal: bowel sounds, soft, tender (epigastric), No rebound or guarding Musculoskeletal: nl extremities to inspection, nl gait and stance Extremities: normal pulses, pitting pedal edema (+1) Neurological: nl mental status, nl speech, nl strength Skin: nl turgor, No rash or lesions Results Result Diagram: 12/25/16 0418 12/25/16 0418 TOMMY THACKER NP Dec 25, 2016 09:27
--- NOTE | 2016-12-25 11:13 | CONS ---
Date/Time of Note Date/Time of Note DATE: 12/25/16 TIME: 11:13 Assessment/Plan Assessment/Plan Chief Complaint/Hosp Course Impression: 1. Cholelithiasis: MRCP shows dilated duct, LFT's improved, Tbili improved; patient with continued pain epigastric; s/p ERCP with sphincterotomy, stent and stone removal 2. Abdominal pain 2/2 above: no n/v 3. Transaminitis: 2/2 #1, continuing to improve 4. Chronic afib: controlled, 5. Coagulopathy: on coumadin; received vitamin K; inr improved 6. Hypertension: controlled Recommendations: - awaiting lap cholecystectomy per surgery -continue pain management -ivf - diet per surgery as surgery decide on timing of surgery. - bowel regimen - continue supportive care - Patient needs her stent to be removed after 3 months which were discussed with the patient and the daughter by Dr. Witt Problems: Consultation Date/Type/Reason Admit Date/Time Dec 22, 2016 at 09:07 Initial Consult Date 12/23/16 Type of Consultation: GI Referring Provider: DANAE THORNTON MD- 24 HR Interval Summary Free Text/Dictation urgery cancelled yesterday due to increasing amylase and OR availability. Have abdominal pain, relieved by analgesics. Tolerated clear liquids without n/v. + flatus. No fevers, chills, cp, palpitations, sob, congested cough. Exam/Review of Systems Vital Signs Vitals Vital Signs Date Time Temp Pulse Resp B/P Pulse Ox O2 Delivery O2 Flow Rate FiO2 12/25/16 08:08 98.4 83 19 139/91 97 12/23/16 16:05 Room Air Intake and Output 12/24/16 12/24/16 12/25/16 15:00 23:00 07:00 Intake Total 1100 ml 800 ml 1580 ml Balance 1100 ml 800 ml 1580 ml Exam Constitutional: alert, oriented, well developed Psych: nl mood/affect, no complaints Head: atraumatic, normocephalic Eyes: EOMI, nl conjunctiva, nl lids, nl sclera ENMT: mucosa pink and moist, nl external ears & nose, nl lips & teeth, nl nasal mucosa & septum Neck: non-tender, supple Respiratory: clear to auscultation, normal air movement Cardiovascular: nl pulses, regular rate and rhythm Gastrointestinal: bowel sounds, soft, tender (epigastric and ruq) Results Result Diagram: 12/25/16 0418 12/25/16 0418 Results 24 hrs Laboratory Tests Test 12/25/16 04:18 White Blood Count 6.8 Red Blood Count 3.76 L Hemoglobin 10.8 L Hematocrit 33.5 L Mean Corpuscular Volume 89.1 Mean Corpuscular Hemoglobin 28.7 L Mean Corpuscular Hemoglobin Concent 32.2 Red Cell Distribution Width 12.9 Platelet Count 188 Mean Platelet Volume 10.6 H Neutrophils % 68.3 Lymphocytes % 21.0 Monocytes % 7.8 Eosinophils % 1.9 Basophils % 0.7 Nucleated Red Blood Cells % 0.0 Neutrophils # (Manual) 4.6 Lymphocytes # 1.4 Monocytes # 0.5 Eosinophils # 0.1 Basophils # 0.1 Nucleated Red Blood Cells # 0.0 Sodium Level 140 Potassium Level 3.8 Chloride Level 108 Carbon Dioxide Level 26 Anion Gap 10 Blood Urea Nitrogen 17 Creatinine 0.90 Glucose Level 83 Calcium Level 8.3 L Total Bilirubin 1.3 Direct Bilirubin 0.00 Indirect Bilirubin 1.3 H Aspartate Amino Transf (AST/SGOT) 77 H Alanine Aminotransferase (ALT/SGPT) 121 H Alkaline Phosphatase 87 Total Protein 5.9 L Albumin 2.8 L Globulin 3.10 Albumin/Globulin Ratio 0.90 Amylase Level 53 # Lipase 70 Medications Medications Current Medications Metoprolol Succinate (Toprol Xl) 50 mg DAILY PO Last administered on 12/25/16 08:22; Admin Dose 50 MG; Start 12/23/16 at 09:00 Lisinopril (Zestril) 20 mg AM PO Last administered on 12/25/16 08:22; Admin Dose 20 MG; Start 12/23/16 at 09:00 Ondansetron HCl (Zofran Inj) 4 mg Q4 PRN IV NAUSEA AND/OR VOMITING Last administered on 12/23/16 16:31; Admin Dose 4 MG; Start 12/22/16 at 13:00 Morphine Sulfate (morphine) 2 mg Q3 PRN IV PAIN LEVEL 6-10 Last administered on 12/24/16 12:40; Admin Dose 2 MG; Start 12/22/16 at 13:00 Hydralazine HCl (Apresoline) 5 mg Q6 PRN IV sbp>180 or dbp>95; Start 12/22/16 at 13:00 Acetaminophen (Tylenol Tab) 650 mg Q6 PRN PO PAIN AND OR ELEVATED TEMP; Start 12/22/16 at 13:00 Lorazepam 0.5 mg 0.5 mg HS PRN IV insomnia Last administered on 12/24/16 19:40 ; Admin Dose 0.5 MG; Start 12/22/16 at 13:00 Sodium Chloride 1,000 ml @ 100 mls/hr Q10H IV Last administered on 12/25/16 02 :48; Admin Dose 100 MLS/HR; Start 12/22/16 at 13:00 Piperacillin Sod/ Tazobactam Sod (Zosyn 3.375gm/ 100 ml (Pmx)) 100 ml @ 200 mls /hr Q8 IVPB Last administered on 12/25/16 05:07; Admin Dose 200 MLS/HR; Start 12/23/16 at 07:00 Pantoprazole (Protonix Iv) 40 mg DAILY@06 IV Last administered on 12/25/16 05: 07; Admin Dose 40 MG; Start 12/24/16 at 06:00 Hydromorphone HCl (Dilaudid) 0.5 mg Q2 PRN IV PAIN Last administered on 10:19; Admin Dose 0.5 MG; Start 12/24/16 at 20:30 IRMA ORTIZ MD Dec 25, 2016 11:13
[2016-12-25 14:00] VITALS: BP 112/95; RESP 18
[2016-12-25 19:50] VITALS: BP 98/59; PULSE 122; RESP 18
[2016-12-25 20:00] VITALS: BP 139/87; RESP 19
[2016-12-25] MEDS: ENOXAPARIN 100 MG/ML SYG SC SCH (23:51)
--- NOTE | 2016-12-26 01:18 | PN ---
DATE: 12/25/2016 SUBJECTIVE DATA: The patient complains of moderate epigastric pain that did get better with the Dilaudid. The patient has poor appetite but does tolerate Jell-O but increased symptoms with water. OBJECTIVE DATA: VITAL SIGNS: Temperature 98.1, pulse 96, respiratory rate 19, blood pressure 139/87, oxygen saturation 96 percent on room air. GENERAL: Well-developed, well-nourished female, in no acute distress. Lying in bed. CHEST: Clear to auscultation bilaterally. HEART: Irregularly irregular. 2/6 holosystolic murmur. ABDOMEN: Moderate right upper quadrant epigastric tenderness to mild palpation. Decreased bowel sounds. NEUROLOGIC: Nonfocal. LABORATORY EXAMINATION: Sodium 140, potassium 3.8, chloride 108, bicarbonate 26, BUN 17, creatinine 0.9, glucose 83. Total bilirubin 1.3, AST 77, ALT 121. Amylase of 53, lipase 70. Hemoglobin 10.8, hematocrit 33.5, platelets 188. White blood cell count 6.8. ASSESSMENT AND PLAN: 1. Choledocholithiasis. The patient remains with moderate abdominal pain after the endoscopic retrograde cholangiopancreatogram and stent placement. The patient's amylase has come down significantly, but patient continues to have epigastric pain. We will continue with Dilaudid, clear liquids and continue to observe in the hospital, as patient may require surgery more urgently. 2. Chronic atrial fibrillation/hypertension, stable. Continue with medications. We will restart anticoagulation by giving Lovenox and hold prior to surgery. 3. Anemia. Continue to monitor the patient with IV hydration, which may be a dispositional component. We will continue to monitor. Dictated By: Gutierrez Burch MD /aide/tania /Document#: [id number]
[2016-12-26 02:00] VITALS: BP 125/93; RESP 19
[2016-12-26 05:31] LABS: BASOPHIL # 0.1 10^3/ul (0.0-0.1); BASOPHILS % 0.8 % (0.0-2.0); EOSINOPHILS # 0.2 10^3/ul (0.0-0.5); EOSINOPHILS % 3.4 % (0.0-7.0); HEMATOCRIT 31.7 % (37.0-47.0); HEMOGLOBIN 10.4 g/dl (12.0-16.0); LYMPHOCYTES # 1.4 10^3/ul (0.8-2.9); LYMPHOCYTES % 22.3 % (15.0-51.0); MEAN CORPUSCULAR HEMOGLOBIN 28.9 pg (29.0-33.0); MEAN CORPUSCULAR HGB CONC 32.8 g/dl (32.0-37.0); MEAN CORPUSCULAR VOLUME 88.1 fl (82.0-101.0); MEAN PLATELET VOLUME 10.5 fl (7.4-10.4); MONOCYTE # 0.7 10^3/ul (0.3-0.9); MONOCYTES % 10.3 % (0.0-11.0); PLATELET COUNT 169 10^3/UL (140-415); RED CELL DISTRIBUTION WIDTH 12.8 % (11.5-14.5); WHITE BLOOD COUNT 6.4 10^3/ul (4.8-10.8)
[2016-12-26] MEDS: PIPER-TAZO 3.375 GM IV (PMX) 100 ML IVPB SCH ×3 (06:01→21:54)
[2016-12-26] MEDS: PANTOPRAZOLE 40 MG INJ IV SCH (06:01)
[2016-12-26] MEDS: HYDROmorphONE 1 MG/ML SYG IV PRN ×3 (06:09→22:33)
[2016-12-26] MEDS: SOD CHLORIDE 0.9% 1,000 ML IV SCH ×2 (06:09→20:49)
[2016-12-26 08:09] VITALS: BP 134/97; RESP 20
[2016-12-26] MEDS: METOPROLOL (XL) 50 MG TAB PO SCH (08:51)
[2016-12-26] MEDS: LISINOPRIL 20 MG TAB PO SCH (08:51)
[2016-12-26] MEDS: ENOXAPARIN 100 MG/ML SYG SC SCH ×2 (08:53→20:53)
[2016-12-26 10:30] LABS: ALBUMIN 2.9 g/dl (3.3-4.9); ALBUMIN/GLOBULIN RATIO 0.96; BILIRUBIN,INDIRECT 1.1 mg/dl (0-1.1); BILIRUBIN,TOTAL 1.1 mg/dl (0.2-1.3); CALCIUM 8.2 mg/dl (8.4-10.2); CREATININE 0.8 mg/dl (0.44-1.00); MAGNESIUM 1.6 mg/dl (1.7-2.5); POTASSIUM 3.6 mmol/L (3.5-5.1); TOTAL PROTEIN 5.9 g/dl (6.1-8.1)
--- NOTE | 2016-12-26 12:30 | PN ---
DATE: 12/26/2016 SUBJECTIVE: The complains of moderate to severe abdominal pain, poor appetite, and feels that she is barely able to tolerate her clear liquids. OBJECTIVE: VITAL SIGNS: Temperature 98.0, pulse 100, respirations 20, blood pressure 134/97, oxygen saturation 98 percent on room air. GENERAL: A well-developed, well-nourished female, in no acute distress. SKIN: Without rashes. CHEST: Clear to auscultation. HEART: Tachycardic and irregular, 2/6 holosystolic murmur. ABDOMEN: Moderate epigastric and right upper quadrant tenderness with positive Morrison sign. Decreased bowel sounds. Equivocal rebound. LABORATORY EXAMINATION: White blood cell count 6.4, hemoglobin 10.4, hematocrit 31.7. Platelets 169,000. ASSESSMENT AND PLAN: 1. Choledocholithiasis status post stent and stone removal and sphincterotomy. The patient continues to have moderate to severe abdominal pain, poor appetite and poor tolerance to clear liquids. We will continue the patient as an inpatient as patient cannot be sent home having to receive Dilaudid intravenously for pain control, poor appetite control and intolerability of clear liquids. 2. Chronic atrial fibrillation. Patient with tachycardia, this would be likely related to pain. Continue with medications and continue Lovenox for now. 3. Anemia, worse as patient continues to receive hydration. May be a dilutional effect. Continue to monitor. Dictated By: Gutierrez Burch MD /aide/david /Document#: [id number]
--- NOTE | 2016-12-26 13:59 | CONS ---
Date/Time of Note Date/Time of Note DATE: 12/26/16 TIME: 13:57 Assessment/Plan Assessment/Plan Chief Complaint/Hosp Course Impression: 1. Cholelithiasis: MRCP shows dilated duct, LFT's improved, Tbili improved; patient with continued pain epigastric; s/p ERCP with sphincterotomy, stent and stone removal 2. Abdominal pain 2/2 above: no n/v 3. Transaminitis: 2/2 #1, continuing to improve 4. Chronic afib: controlled, 5. Coagulopathy: on coumadin; received vitamin K; inr improved 6. Hypertension: controlled Recommendations: - awaiting lap cholecystectomy per surgery -continue pain management -ivf - diet per surgery as surgery decide on timing of surgery. - bowel regimen - continue supportive care - Patient needs her stent to be removed after 3 months which were discussed with the patient and the daughter by Dr. Witt Problems: Consultation Date/Type/Reason Admit Date/Time Dec 22, 2016 at 09:07 Initial Consult Date 12/23/16 Type of Consultation: GI Referring Provider: DANAE THORNTON MD- 24 HR Interval Summary Free Text/Dictation epigastric pain improved, patient is waiting for her cholecystectomy, no n/v Exam/Review of Systems Vital Signs Vitals Vital Signs Date Time Temp Pulse Resp B/P Pulse Ox O2 Delivery O2 Flow Rate FiO2 12/26/16 08:09 98.0 100 20 134/97 98 12/25/16 19:50 Room Air 5.0 Intake and Output 12/25/16 12/25/16 12/26/16 15:00 23:00 07:00 Intake Total 1450 ml 1600 ml Balance 1450 ml 1600 ml Exam Constitutional: alert, obese, oriented, well developed Psych: nl mood/affect, no complaints Head: atraumatic, normocephalic Eyes: EOMI, nl conjunctiva, nl lids, nl sclera ENMT: mucosa pink and moist, nl external ears & nose, nl lips & teeth, nl nasal mucosa & septum Neck: non-tender, supple Respiratory: clear to auscultation, normal air movement Cardiovascular: nl pulses, regular rate and rhythm Gastrointestinal: bowel sounds, non-tender, soft Results Result Diagram: 12/26/16 0437 12/26/16436 Results 24 hrs Laboratory Tests Test 12/26/16 04:37 White Blood Count 6.4 Red Blood Count 3.60 L Hemoglobin 10.4 L Hematocrit 31.7 L Mean Corpuscular Volume 88.1 Mean Corpuscular Hemoglobin 28.9 L Mean Corpuscular Hemoglobin Concent 32.8 Red Cell Distribution Width 12.8 Platelet Count 169 Mean Platelet Volume 10.5 H Neutrophils % 63.0 Lymphocytes % 22.3 Monocytes % 10.3 Eosinophils % 3.4 Basophils % 0.8 Nucleated Red Blood Cells % 0.0 Neutrophils # (Manual) 4.0 Lymphocytes # 1.4 Monocytes # 0.7 Eosinophils # 0.2 Basophils # 0.1 Nucleated Red Blood Cells # 0.0 Sodium Level 139 Potassium Level 3.6 Chloride Level 108 Carbon Dioxide Level 25 Anion Gap 10 Blood Urea Nitrogen 11 Creatinine 0.80 Glucose Level 75 Calcium Level 8.2 L Magnesium Level 1.6 L Total Bilirubin 1.1 Direct Bilirubin 0.00 Indirect Bilirubin 1.1 Aspartate Amino Transf (AST/SGOT) 44 Alanine Aminotransferase (ALT/SGPT) 103 H Alkaline Phosphatase 85 Total Protein 5.9 L Albumin 2.9 L Globulin 3.00 Albumin/Globulin Ratio 0.96 Medications Medications Current Medications Metoprolol Succinate (Toprol Xl) 50 mg DAILY PO Last administered on 12/26/16 08:51; Admin Dose 50 MG; Start 12/23/16 at 09:00 Lisinopril (Zestril) 20 mg AM PO Last administered on 12/26/16 08:51; Admin Dose 20 MG; Start 12/23/16 at 09:00 Ondansetron HCl (Zofran Inj) 4 mg Q4 PRN IV NAUSEA AND/OR VOMITING Last administered on 12/23/16 16:31; Admin Dose 4 MG; Start 12/22/16 at 13:00 Morphine Sulfate (morphine) 2 mg Q3 PRN IV PAIN LEVEL 6-10 Last administered on 12/24/16 12:40; Admin Dose 2 MG; Start 12/22/16 at 13:00 Hydralazine HCl (Apresoline) 5 mg Q6 PRN IV sbp>180 or dbp>95; Start 12/22/16 at 13:00 Acetaminophen (Tylenol Tab) 650 mg Q6 PRN PO PAIN AND OR ELEVATED TEMP; Start 12/22/16 at 13:00 Lorazepam 0.5 mg 0.5 mg HS PRN IV insomnia Last administered on 12/24/16 19:40 ; Admin Dose 0.5 MG; Start 12/22/16 at 13:00 Sodium Chloride 1,000 ml @ 100 mls/hr Q10H IV Last administered on 12/26/16 06 :09; Admin Dose 100 MLS/HR; Start 12/22/16 at 13:00 Piperacillin Sod/ Tazobactam Sod (Zosyn 3.375gm/ 100 ml (Pmx)) 100 ml @ 200 mls /hr Q8 IVPB Last administered on 12/26/16 06:01; Admin Dose 200 MLS/HR; Start 12/23/16 at 07:00 Pantoprazole (Protonix Iv) 40 mg DAILY@06 IV Last administered on 12/26/16 06: 01; Admin Dose 40 MG; Start 12/24/16 at 06:00 Hydromorphone HCl (Dilaudid) 0.5 mg Q2 PRN IV PAIN Last administered on 08:50; Admin Dose 0.5 MG; Start 12/24/16 at 20:30 Enoxaparin Sodium (Lovenox) 90 mg Q12 SC Last administered on 12/26/16 08:53; Admin Dose 90 MG; Start 12/25/16 at 23:00 IRMA ORTIZ MD Dec 26, 2016 13:59
[2016-12-26 14:52] VITALS: BP 122/79; RESP 16
--- NOTE | 2016-12-26 17:03 | PN ---
Date/Time of Note Date/Time of Note DATE: 12/26/16 TIME: 17:01 Assessment/Plan Lines/Catheters IV C[facility]ter Type (from [facility]): Peripheral IV Assessment/Plan Chief Complaint/Hosp Course 1. Cholelithiasis & choledocholithiasis: MRCP shows dilated duct, LFT's improved , Tbili improved; patient with continued pain epigastric; s/p ERCP with sphincterotomy, stent and stone removal; amylas/lipase nl -eventual lap romie -continue pain management -ivf 2. Abdominal pain 2/2 above -pain management -as above 3. Transaminitis: 2/2 #1, continuing to improve -ivf -as above 4. Chronic afib: controlled, on coumadin outpatient; on hold currently -medical management 5. Coagulopathy: on coumadin; received vitamin K; inr improved 6. Hypertension: controlled -medical management -encourage weight loss 7. Constipation: -optimize bowel regimen 8. Hypochromic anemia: dilutional vs. other: no acute bleed -monitor and transfuse prn 9. Overweight: BMI: 29 -encourage lifestyle and diet optimization -encourage weight loss 10. Hyperlipidemia with aortic calcification: -continue medical management 11. LLL atelectasis: No sob, maintaining O2 sats -IS -ambulate -management per medical team Thank you, Problems: Subjective 24 Hr Interval Summary Continues to have abdominal pain, relieved by analgesics. Tolerated clear liquids without n/v. +Flatus. No fevers, chills, cp, palpitations, sob, congested cough. Exam/Review of Systems Vital Signs Vitals Vital Signs Date Time Temp Pulse Resp B/P Pulse Ox O2 Delivery O2 Flow Rate FiO2 12/26/16 14:52 98.0 99 16 122/79 97 12/25/16 19:50 Room Air 5.0 Intake and Output 12/25/16 12/25/16 12/26/16 14:59 22:59 06:59 Intake Total 1450 ml 1600 ml Balance 1450 ml 1600 ml Exam Free Text/Dictation Constitutional: alert, oriented Psych: nl mood/affect, sad mood Head: atraumatic, normocephalic Eyes: nl lids, nl sclera, No icteric ENMT: mucosa pink and moist, nl nasal mucosa & septum Neck: non-tender, supple, No jvd Respiratory: clear to auscultation, diminished at base, normal air movement Cardiovascular: irregular rhythm, nl pulses, No regular rate and rhythm Gastrointestinal: bowel sounds, soft, tender (epigastric), No rebound or guarding Musculoskeletal: nl extremities to inspection, nl gait and stance Extremities: normal pulses, pitting pedal edema (+1) Neurological: nl mental status, nl speech, nl strength Skin: nl turgor, No rash or lesions Results Result Diagram: 12/26/16 0437 12/26/16 0437 CHOLO IRIZARRY MD Dec 26, 2016 17:03
[2016-12-26 18:40] VITALS: BP 142/85; PULSE 90; RESP 16
[2016-12-26] MEDS ORDERED: LEVALBUTEROL (NEB) 0.63 MG/3 ML AMP HHN PRN (19:00)
[2016-12-26 19:21] LABS: AADO2 Arterial 41.1 mmHg (7.0-24.0); Allen Test ACCEPTAB; Arterial Base Excess -1.8 mmol/L (-3.0-3); Arterial COHb 0.3 % (0.0-3.0); Arterial Fraction of Oxyhgb 93.9 % (93.0-99.0); Arterial HCO3 21.5 mmol/L (22.0-26.0); Arterial MetHb 0.3 % (0.0-1.5); Arterial Total Hemglobin 12.1 g/dl (12.0-18.0); MODE ROOM AIR
--- NOTE | 2016-12-26 20:26 | RADRPT ---
PROCEDURE: XR Chest. CLINICAL INDICATION: Shortness of breath. TECHNIQUE: Portable AP semi erect view of the chest was obtained. COMPARISON: 12/23/2016 FINDINGS: The cardiomediastinal silhouette is mildly enlarged. Bilateral lower lobe subsegmental atelectasis is worse. Mild interstitial edema is present and there is concern for small pleural effusions, the combination of findings likely reflective of congestive heart failure. There is no evidence of pneu mothorax. Thoracic spondylosis is present without evidence of acute osseous abnormality. Calcificat ion is visible within the aorta RPTAT:HJJR IMPRESSION: Cardiac silhouette enlargement, mild interstitial edema and small bilateral pleural effusions is con cerning for interval development of congestive heart failure compared 12/23/2016 with slight worseni ng of bibasilar subsegmental atelectasis. Physician Jina Date Time Electronically viewed and signed by Physician Jina on 12/26/2016 20:25 /
[2016-12-26 20:52] VITALS: BP 135/98; RESP 20
[2016-12-26] MEDS ORDERED: FUROSEMIDE 20 MG INJ ONE (21:51)
[2016-12-26] MEDS ORDERED: FUROSEMIDE 20 MG INJ IV ONE (22:00)
[2016-12-27 03:22] VITALS: BP 128/95; RESP 20
[2016-12-27 05:09] LABS: BASOPHIL # 0.1 10^3/ul (0.0-0.1); BASOPHILS % 0.7 % (0.0-2.0); EOSINOPHILS # 0.3 10^3/ul (0.0-0.5); EOSINOPHILS % 3.7 % (0.0-7.0); HEMATOCRIT 34.7 % (37.0-47.0); HEMOGLOBIN 11.3 g/dl (12.0-16.0); LYMPHOCYTES # 1.7 10^3/ul (0.8-2.9); LYMPHOCYTES % 24.6 % (15.0-51.0); MEAN CORPUSCULAR HEMOGLOBIN 28.5 pg (29.0-33.0); MEAN CORPUSCULAR HGB CONC 32.6 g/dl (32.0-37.0); MEAN CORPUSCULAR VOLUME 87.4 fl (82.0-101.0); MEAN PLATELET VOLUME 10.6 fl (7.4-10.4); MONOCYTE # 0.7 10^3/ul (0.3-0.9); MONOCYTES % 9.9 % (0.0-11.0); NEUTROPHILS % 60.8 % (39.0-77.0); PLATELET COUNT 198 10^3/UL (140-415); RED BLOOD COUNT 3.97 10^6/ul (4.20-5.40); RED CELL DISTRIBUTION WIDTH 12.5 % (11.5-14.5)
[2016-12-27 05:39] LABS: ALBUMIN 3.2 g/dl (3.3-4.9); ALBUMIN/GLOBULIN RATIO 0.96; BILIRUBIN,INDIRECT 1.4 mg/dl (0-1.1); BILIRUBIN,TOTAL 1.4 mg/dl (0.2-1.3); CALCIUM 8.6 mg/dl (8.4-10.2); CREATININE 0.75 mg/dl (0.44-1.00); POTASSIUM 3.2 mmol/L (3.5-5.1); TOTAL PROTEIN 6.5 g/dl (6.1-8.1)
[2016-12-27] MEDS: PANTOPRAZOLE (EC) 40 MG TAB PO SCH (06:37)
[2016-12-27] MEDS: PIPER-TAZO 3.375 GM IV (PMX) 100 ML IVPB SCH ×3 (06:37→22:13)
[2016-12-27] MEDS: HYDROmorphONE 1 MG/ML SYG IV PRN ×2 (06:44→20:38)
[2016-12-27 08:02] VITALS: BP 126/79; RESP 19
[2016-12-27] MEDS: LISINOPRIL 20 MG TAB PO SCH (09:04)
[2016-12-27] MEDS: METOPROLOL (XL) 50 MG TAB PO SCH (09:04)
[2016-12-27] MEDS: ENOXAPARIN 100 MG/ML SYG SC SCH ×2 (09:05→21:00)
[2016-12-27] MEDS ORDERED: FUROSEMIDE 20 MG INJ IV ONE (10:00)
[2016-12-27] MEDS ORDERED: POTASSIUM CHLORIDE 30 MEQ in SOD CHLORIDE 0.9% 150 ML IVPB ONE (11:00)
--- NOTE | 2016-12-27 11:15 | PN ---
DATE: 12/27/2016 SUBJECTIVE: Patient is feeling better. No shortness of breath. No abdominal pain. Tolerated her breakfast. OBJECTIVE: VITAL SIGNS: Temperature 98.2, pulse 77, respirations 19, blood pressure 126/79, oxygen saturation 98 percent on 2 L. GENERAL: A well-developed, well-nourished female, in no acute distress. CHEST: Clear to auscultation bilaterally. No rales, rhonchi, or wheezes. HEART: Irregularly irregular, a 2/6 holosystolic murmur. ABDOMEN: Mild right upper quadrant and epigastric tenderness to palpation. Decreased bowel sounds. No rebound. EXTREMITIES: No cyanosis, clubbing, trace edema. LABORATORY EXAMINATION: Arterial blood gas; pH of 7.44, pCO2 32.1, pO2 of 70.2, oxygen saturation 94.5 percent. CBC with a white blood cell count 7.0, hemoglobin 11.3, hematocrit 34.7, platelets 198,000. ProBNP of 5750, yesterday was 5470. Amylase is 31, potassium 3.2, chloride 105, bicarbonate 27, sodium 139, BUN 7, creatinine 0.75, total bilirubin 1.4. Chest x-ray shows mild interstitial edema, small bilateral pleural effusions possibly and increased subsegmental atelectasis. ASSESSMENT AND PLAN: 1. Choledocholithiasis/cholelithiasis status post stent sphincterotomy ERCP. The patient is improved from yesterday with less abdominal pain, able to tolerate her liquid diet. The patient is still awaiting surgery and will continue with pain control and inpatient status, and hopefully surgery can be scheduled for Tuesday. 2. Shortness of breath. Patient with elevated BMP and chest x- ray showed mild fluid overload. Patient improved with IV to Hep- Lock and Lasix x1. Will give another dose of Lasix this morning and follow the BMP. The patient has atrial fibrillation and mitral regurgitation likely contributing. 3. Atrial fibrillation/hypertension, stable. Continue with medications. 4. Acute systolic heart failure. This is improved from yesterday with holding the IV fluids and giving Lasix. We will follow the BMP and give another dose of Lasix today. Dictated By: Gutierrez Burch MD /aide/david /Document#: [id number]
--- NOTE | 2016-12-27 11:29 | CONS ---
Date/Time of Note Date/Time of Note DATE: 12/27/16 TIME: 11:28 Assessment/Plan Assessment/Plan Chief Complaint/Hosp Course Impression: 1. Cholelithiasis: MRCP shows dilated duct, LFT's improved, Tbili improved; patient with continued pain epigastric; s/p ERCP with sphincterotomy, stent and stone removal 2. Abdominal pain 2/2 above: no n/v 3. Transaminitis: 2/2 #1, continuing to improve 4. Chronic afib: controlled, 5. Coagulopathy: on coumadin; received vitamin K; inr improved 6. Hypertension: controlled Recommendations: - awaiting lap cholecystectomy per surgery -continue pain management -ivf - diet per surgery as surgery decide on timing of surgery. - bowel regimen - continue supportive care - Patient needs her stent to be removed after 3 months which were discussed with the patient and the daughter by Dr. Witt - Dr. Witt to resume the care of this patient tomorrow Problems: Consultation Date/Type/Reason Admit Date/Time Dec 26, 2016 at 16:53 Initial Consult Date 12/23/16 Type of Consultation: GI Referring Provider: DANAE THORNTON MD- 24 HR Interval Summary Free Text/Dictation Patient is feeling better. No shortness of breath. No abdominal pain. Tolerated her breakfast. Constitutional: improved Exam/Review of Systems Vital Signs Vitals Vital Signs Date Time Temp Pulse Resp B/P Pulse Ox O2 Delivery O2 Flow Rate FiO2 12/27/16 08:02 98.2 77 19 126/79 98 12/27/16 07:45 Nasal Cannula 2.0 Intake and Output 12/26/16 12/26/16 12/27/16 15:00 23:00 07:00 Intake Total 2600 ml 240 ml Balance 2600 ml 240 ml Exam Constitutional: alert, oriented, well developed Psych: nl mood/affect, no complaints Head: atraumatic, normocephalic Eyes: EOMI, nl conjunctiva, nl lids, nl sclera ENMT: mucosa pink and moist, nl external ears & nose, nl lips & teeth, nl nasal mucosa & septum Neck: non-tender, supple Respiratory: clear to auscultation, normal air movement Cardiovascular: nl pulses, regular rate and rhythm Gastrointestinal: bowel sounds, non-tender, soft Results Result Diagram: 12/27/1642612/27/16426 Results 24 hrs Laboratory Tests Test 12/26/16 18:58 12/26/16 22:22 12/27/16 04:27 Blood Gas Specimen Source Blood arterial Arterial Blood Date Drawn 12/26/2016 7:07:45 PM Arterial Blood pH (Temp corrected) 7.444 Arterial Blood pCO2 (Temp correct) 32.1 L Arterial Blood pO2 (Temp corrected) 70.2 L Arterial Blood HCO3 21.5 L Arterial Blood Base Excess -1.8 Arterial Blood Oxygen Saturation 94.5 L Cheko Test ACCEPTAB Arterial Blood Gas Puncture Site Left Radial Arterial Blood Carboxyhemoglobin 0.3 Arterial Blood Methemoglobin 0.3 Blood Gas A-a O2 Differential 41.1 H Oxyhemoglobin Percent 93.9 Total Hemoglobin 12.1 Blood Gas Temperature 37.0 Blood Gas Modality ROOM AIR FiO2 21.0 Blood Gas Notified Whom DY Blood Gas Notified Time 12/26/2016 7:21:11 PM B-Type Natriuretic Peptide 5470 H 5750 H White Blood Count 7.0 Red Blood Count 3.97 L Hemoglobin 11.3 L Hematocrit 34.7 L Mean Corpuscular Volume 87.4 Mean Corpuscular Hemoglobin 28.5 L Mean Corpuscular Hemoglobin Concent 32.6 Red Cell Distribution Width 12.5 Platelet Count 198 Mean Platelet Volume 10.6 H Neutrophils % 60.8 Lymphocytes % 24.6 Monocytes % 9.9 Eosinophils % 3.7 Basophils % 0.7 Nucleated Red Blood Cells % 0.0 Neutrophils # (Manual) 4.2 Lymphocytes # 1.7 Monocytes # 0.7 Eosinophils # 0.3 Basophils # 0.1 Nucleated Red Blood Cells # 0.0 Sodium Level 139 Potassium Level 3.2 L Chloride Level 105 Carbon Dioxide Level 27 Anion Gap 10 Blood Urea Nitrogen 7 Creatinine 0.75 Glucose Level 78 Calcium Level 8.6 Magnesium Level 1.5 L Total Bilirubin 1.4 H Direct Bilirubin 0.00 Indirect Bilirubin 1.4 H Aspartate Amino Transf (AST/SGOT) 26 Alanine Aminotransferase (ALT/SGPT) 78 H Alkaline Phosphatase 88 Total Protein 6.5 Albumin 3.2 L Globulin 3.30 H Albumin/Globulin Ratio 0.96 Amylase Level 31 Medications Medications Current Medications Metoprolol Succinate (Toprol Xl) 50 mg DAILY PO Last administered on 12/27/16t 09:04; Admin Dose 50 MG; Start 12/23/16 at 09:00 Lisinopril (Zestril) 20 mg AM PO Last administered on 12/27/16 09:04; Admin Dose 20 MG; Start 12/23/16 at 09:00 Ondansetron HCl (Zofran Inj) 4 mg Q4 PRN IV NAUSEA AND/OR VOMITING Last administered on 12/23/16 16:31; Admin Dose 4 MG; Start 12/22/16 at 13:00 Morphine Sulfate (morphine) 2 mg Q3 PRN IV PAIN LEVEL 6-10 Last administered on 12/24/16 12:40; Admin Dose 2 MG; Start 12/22/16 at 13:00 Hydralazine HCl (Apresoline) 5 mg Q6 PRN IV sbp>180 or dbp>95; Start 12/22/16 at 13:00 Acetaminophen (Tylenol Tab) 650 mg Q6 PRN PO PAIN AND OR ELEVATED TEMP; Start 12/22/16 at 13:00 Lorazepam 0.5 mg 0.5 mg HS PRN IV insomnia Last administered on 12/24/16 19:40 ; Admin Dose 0.5 MG; Start 12/22/16 at 13:00 Piperacillin Sod/ Tazobactam Sod (Zosyn 3.375gm/ 100 ml (Pmx)) 100 ml @ 200 mls /hr Q8 IVPB Last administered on 12/27/16 06:37; Admin Dose 200 MLS/HR; Start 12/23/16 at 07:00 Hydromorphone HCl (Dilaudid) 0.5 mg Q2 PRN IV PAIN Last administered on 06:44; Admin Dose 0.5 MG; Start 12/24/16 at 20:30 Enoxaparin Sodium (Lovenox) 90 mg Q12 SC Last administered on 12/27/16 09:05; Admin Dose 90 MG; Start 12/25/16 at 23:00 Pantoprazole 40 mg 40 mg DAILY@06 PO Last administered on 12/27/16 06:37; Admin Dose 40 MG; Start 12/27/16 at 06:00 Potassium Chloride/Sodium Chloride (KCl/NS) 165 ml @ 55 mls/hr ONCE ONCE IVPB ; Start 12/27/16 at 11:00; Stop 12/27/16 at 13:59 IRMA ORTIZ MD Dec 27, 2016 11:29
[2016-12-27 14:15] VITALS: BP 129/85; RESP 18
--- NOTE | 2016-12-27 16:07 | PN ---
Date/Time of Note Date/Time of Note DATE: 12/27/16 TIME: 16:05 Assessment/Plan Lines/Catheters IV Catheter Type (from Nrs): Saline Lock Agustin in Place (from Nrs): No Assessment/Plan Chief Complaint/Hosp Course 1. Cholelithiasis & choledocholithiasis: MRCP shows dilated duct, LFT's improved , Tbili improved; patient with continued pain epigastric; s/p ERCP with sphincterotomy, stent and stone removal; amylas/lipase nl -lap romie tomorrow if OR will allow us to proceed (again boiler broke down) -continue pain management -ivf 2. Abdominal pain 2/2 above -pain management -as above 3. Transaminitis: 2/2 #1, continuing to improve -ivf -as above 4. Chronic afib: controlled, on coumadin outpatient; on hold currently -medical management 5. Coagulopathy: on coumadin; received vitamin K; inr improved 6. Hypertension: controlled -medical management -encourage weight loss 7. Constipation: -optimize bowel regimen 8. Hypochromic anemia: dilutional vs. other: no acute bleed -monitor and transfuse prn 9. Overweight: BMI: 29 -encourage lifestyle and diet optimization -encourage weight loss 10. Hyperlipidemia with aortic calcification: -continue medical management 11. LLL atelectasis: No sob, maintaining O2 sats -IS -ambulate -management per medical team Thank you, Problems: Subjective 24 Hr Interval Summary Pain improved. Nausea improving. Tolerated clear liquids. No vomiting. +Bowel function. No fevers, chills, cp, palpitations, sob, congested cough. Exam/Review of Systems Vital Signs Vitals Vital Signs Date Time Temp Pulse Resp B/P Pulse Ox O2 Delivery O2 Flow Rate FiO2 12/27/16 14:15 98.2 89 18 129/85 98 12/27/16 07:45 Nasal Cannula 2.0 Intake and Output 12/26/16 12/26/16 12/27/16 14:59 22:59 06:59 Intake Total 2600 ml 240 ml Balance 2600 ml 240 ml Exam Free Text/Dictation Constitutional: alert, oriented Psych: nl mood/affect, sad mood Head: atraumatic, normocephalic Eyes: nl lids, nl sclera, No icteric ENMT: mucosa pink and moist, nl nasal mucosa & septum Neck: non-tender, supple, No jvd Respiratory: clear to auscultation, diminished at base, normal air movement Cardiovascular: irregular rhythm, nl pulses, No regular rate and rhythm Gastrointestinal: bowel sounds, soft, tender (epigastric), No rebound or guarding Musculoskeletal: nl extremities to inspection, nl gait and stance Extremities: normal pulses, pitting pedal edema (+1) Neurological: nl mental status, nl speech, nl strength Skin: nl turgor, No rash or lesions Results Result Diagram: 12/27/16 0427 12/27/16 0427 CHOLO IRIZARRY MD Dec 27, 2016 16:07
[2016-12-27 19:22] VITALS: BP 139/79; RESP 18
[2016-12-27] MEDS: ONDANSETRON 4 MG INJ IV PRN (20:38)
[2016-12-28] VITALS (19 sets, daily range): BP systolic 109–151; BP diastolic 60–96; PULSE 72–95; RESP 12–18
[2016-12-28 05:31] LABS: BASOPHILS % 0.7 % (0.0-2.0); EOSINOPHILS # 0.3 10^3/ul (0.0-0.5); EOSINOPHILS % 5.9 % (0.0-7.0); HEMATOCRIT 33.5 % (37.0-47.0); LYMPHOCYTES # 1.3 10^3/ul (0.8-2.9); LYMPHOCYTES % 23.3 % (15.0-51.0); MEAN CORPUSCULAR HEMOGLOBIN 28.7 pg (29.0-33.0); MEAN CORPUSCULAR HGB CONC 32.8 g/dl (32.0-37.0); MEAN CORPUSCULAR VOLUME 87.5 fl (82.0-101.0); MEAN PLATELET VOLUME 10.9 fl (7.4-10.4); MONOCYTE # 0.7 10^3/ul (0.3-0.9); MONOCYTES % 11.7 % (0.0-11.0); NEUTROPHILS % 58.2 % (39.0-77.0); PLATELET COUNT 194 10^3/UL (140-415); RED BLOOD COUNT 3.83 10^6/ul (4.20-5.40); RED CELL DISTRIBUTION WIDTH 12.7 % (11.5-14.5); WHITE BLOOD COUNT 5.6 10^3/ul (4.8-10.8)
[2016-12-28] MEDS: PIPER-TAZO 3.375 GM IV (PMX) 100 ML IVPB SCH ×3 (05:50→21:38)
[2016-12-28] MEDS: PANTOPRAZOLE (EC) 40 MG TAB PO SCH (05:50)
[2016-12-28 06:01] LABS: ALBUMIN/GLOBULIN RATIO 1.03; CALCIUM 8.4 mg/dl (8.4-10.2); CREATININE 0.79 mg/dl (0.44-1.00); POTASSIUM 3.2 mmol/L (3.5-5.1); TOTAL PROTEIN 5.9 g/dl (6.1-8.1)
[2016-12-28] MEDS: HYDROmorphONE 1 MG/ML SYG IV PRN ×2 (07:04→17:26)
[2016-12-28] MEDS ORDERED: POTASSIUM CHLORIDE 250 ML IVPB ONE (09:00)
[2016-12-28] MEDS: ENOXAPARIN 100 MG/ML SYG SC SCH ×2 (09:00→21:44)
--- NOTE | 2016-12-28 09:00 | PN ---
DATE: 12/28/2016 SUBJECTIVE DATA: Patient is feeling better. Minimal abdominal pain. No more nausea. No shortness of breath. No chest pressure. OBJECTIVE DATA: VITAL SIGNS: Temperature 98.1, pulse 74, respirations 18, blood pressure 127/84, oxygen saturation 96 percent on room air. GENERAL: A well-developed, well-nourished female, in no acute distress. Lying in bed. CHEST: Clear to auscultation bilaterally. HEART: Irregularly irregular. 2/6 holosystolic murmur. ABDOMEN: Mild epigastric and right upper quadrant tenderness. No rebound. Soft. Normoactive bowel sounds. Nondistended. EXTREMITIES: No cyanosis, clubbing. Trace edema. NEUROLOGIC: Nonfocal. LABORATORY AND DIAGNOSTIC DATA: Potassium 3.2, magnesium was 1.5 yesterday, sodium 140, chloride 103, bicarbonate 3-, BUN 9, creatinine 0.79. AST 17, ALT 58, alkaline phosphatase 78. Hemoglobin 11.0, hematocrit 33.5, white blood cell count 5.6, platelets 194. ASSESSMENT AND PLAN: 1. Choledocholithiasis, status post stenting, sphincterotomy and endoscopic retrograde cholangiopancreatogram with cholelithiasis. The patient remains stable and is to go for elective laparoscopic cholecystectomy later today. 2. Hypomagnesemia and hypokalemia. We will replace. 3. Chronic atrial fibrillation/hypertension, remains stable. Continue with medications. 4. Acute systolic heart failure, resolved with diuretics and holding intravenous fluids. Patient is stable for surgery. Dictated By: Gutierrez Burch MD /aide/tania /Document#: [id number]
[2016-12-28] MEDS: METOPROLOL (XL) 50 MG TAB PO SCH (09:28)
[2016-12-28] MEDS: LISINOPRIL 20 MG TAB PO SCH (09:28)
[2016-12-28] MEDS ORDERED: MAGNESIUM SULFATE 2 GM/50 ML 50 ML IVPB SCH (10:00)
--- NOTE | 2016-12-28 10:15 | CONS ---
Date/Time of Note Date/Time of Note DATE: 12/28/16 TIME: 10:15 Assessment/Plan Assessment/Plan Additional Assessment/Plan Chief Complaint/Hosp Course Impression: 1. Cholelithiasis: MRCP shows dilated duct, LFT's improved, Tbili improved; patient with continued pain epigastric; s/p ERCP with sphincterotomy, stent and stone removal 2. Abdominal pain 2/2 above: no n/v 3. Transaminitis: 2/2 #1, continuing to improve 4. Chronic afib: controlled, 5. Coagulopathy: on coumadin; received vitamin K; inr improved 6. Hypertension: controlled Recommendations: - awaiting lap cholecystectomy per surgery -continue pain management -ivf - diet per surgery as surgery decide on timing of surgery. - bowel regimen - continue supportive care - Patient needs her stent to be removed after 3 months which were discussed with the patient and the daughter by Dr. Victoria Patient is scheduled for laparoscopic cholecystectomy today Consultation Date/Type/Reason Admit Date/Time Dec 26, 2016 at 16:53 Initial Consult Date 12/23/16 Type of Consultation: GI Referring Provider: DANAE THORNTON MD- 24 HR Interval Summary Constitutional: improved, no complaints Exam/Review of Systems Vital Signs Vitals Vital Signs Date Time Temp Pulse Resp B/P Pulse Ox O2 Delivery O2 Flow Rate FiO2 12/28/16 07:46 98.1 74 18 127/84 96 12/27/16 07:45 Nasal Cannula 2.0 Intake and Output 12/27/16 12/27/16 12/28/16 14:59 22:59 06:59 Intake Total 1060 ml 500 ml Balance 1060 ml 500 ml Exam Constitutional: alert, oriented, well developed Psych: nl mood/affect, no complaints Head: atraumatic, normocephalic Eyes: EOMI, PERRL, nl conjunctiva, nl lids, nl sclera ENMT: nl external ears & nose, nl lips & teeth, nl nasal mucosa & septum Neck: non-tender, supple Respiratory: clear to auscultation, normal air movement Cardiovascular: nl pulses, regular rate and rhythm Gastrointestinal: nl liver, spleen, non-tender, soft Musculoskeletal: nl extremities to inspection, nl gait and stance Extremities: normal pulses Neurological: OPERATIONS SUPPORT SPECIALIST II-XII intact, nl mental status, nl speech, nl strength Skin: nl turgor, No rash or lesions Lymph: nl lymph nodes Results Result Diagram: 12/28/16 0420 12/28/16 0420 Results 24 hrs Laboratory Tests Test 12/28/16 04:20 White Blood Count 5.6 Red Blood Count 3.83 L Hemoglobin 11.0 L Hematocrit 33.5 L Mean Corpuscular Volume 87.5 Mean Corpuscular Hemoglobin 28.7 L Mean Corpuscular Hemoglobin Concent 32.8 Red Cell Distribution Width 12.7 Platelet Count 194 Mean Platelet Volume 10.9 H Neutrophils % 58.2 Lymphocytes % 23.3 Monocytes % 11.7 H Eosinophils % 5.9 Basophils % 0.7 Nucleated Red Blood Cells % 0.0 Neutrophils # (Manual) 3.3 Lymphocytes # 1.3 Monocytes # 0.7 Eosinophils # 0.3 Basophils # 0.0 Nucleated Red Blood Cells # 0.0 Sodium Level 140 Potassium Level 3.2 L Chloride Level 103 Carbon Dioxide Level 30 Anion Gap 10 Blood Urea Nitrogen 9 Creatinine 0.79 Glucose Level 75 Calcium Level 8.4 Total Bilirubin 1.0 Direct Bilirubin 0.00 Indirect Bilirubin 1.0 Aspartate Amino Transf (AST/SGOT) 17 Alanine Aminotransferase (ALT/SGPT) 58 Alkaline Phosphatase 75 Total Protein 5.9 L Albumin 3.0 L Globulin 2.90 Albumin/Globulin Ratio 1.03 Medications Medications Current Medications Metoprolol Succinate (Toprol Xl) 50 mg DAILY PO Last administered on 12/28/16 09:28; Admin Dose 50 MG; Start 12/23/16 at 09:00 Lisinopril (Zestril) 20 mg AM PO Last administered on 12/28/16 09:28; Admin Dose 20 MG; Start 12/23/16 at 09:00 Ondansetron HCl (Zofran Inj) 4 mg Q4 PRN IV NAUSEA AND/OR VOMITING Last administered on 12/27/16 20:38; Admin Dose 4 MG; Start 12/22/16 at 13:00 Morphine Sulfate (morphine) 2 mg Q3 PRN IV PAIN LEVEL 6-10 Last administered on 12/24/16 12:40; Admin Dose 2 MG; Start 12/22/16 at 13:00 Hydralazine HCl (Apresoline) 5 mg Q6 PRN IV sbp>180 or dbp>95; Start 12/22/16 at 13:00 Acetaminophen (Tylenol Tab) 650 mg Q6 PRN PO PAIN AND OR ELEVATED TEMP; Start 12/22/16 at 13:00 Lorazepam 0.5 mg 0.5 mg HS PRN IV insomnia Last administered on 12/24/16 19:40 ; Admin Dose 0.5 MG; Start 12/22/16 at 13:00 Piperacillin Sod/ Tazobactam Sod (Zosyn 3.375gm/ 100 ml (Pmx)) 100 ml @ 200 mls /hr Q8 IVPB Last administered on 12/28/16 05:50; Admin Dose 200 MLS/HR; Start 12/23/16 at 07:00 Hydromorphone HCl (Dilaudid) 0.5 mg Q2 PRN IV PAIN Last administered on 07:04; Admin Dose 0.5 MG; Start 12/24/16 at 20:30 Enoxaparin Sodium (Lovenox) 90 mg Q12 SC Last administered on 12/27/16 09:05; Admin Dose 90 MG; Start 12/25/16 at 23:00 Pantoprazole 40 mg 40 mg DAILY@06 PO Last administered on 12/28/16 05:50; Admin Dose 40 MG; Start 12/27/16 at 06:00 Magnesium Sulfate 50 ml @ 25 mls/hr ONCE IVPB Last administered on 12/28/16 09: 30; Admin Dose 25 MLS/HR; Start 12/28/16 at 10:00; Stop 12/28/16 at 11:59 Potassium Chloride (KCl 40 MEQ/250 ML NS) 250 ml @ 62.5 mls/hr ONCE ONCE IVPB ; Start 12/28/16 at 09:00; Stop 12/28/16 at 12:59 EVELYNE VICTORIA MD Dec 28, 2016 10:15
--- NOTE | 2016-12-28 11:57 | PN ---
Date/Time of Note Date/Time of Note DATE: 12/28/16 TIME: 11:55 Assessment/Plan Lines/Catheters IV Catheter Type (from [facility]): Saline Lock Agustin in Place (from [facility]): No Assessment/Plan Chief Complaint/Hosp Course 1. Cholelithiasis & choledocholithiasis: MRCP shows dilated duct, LFT's improved , Tbili improved; patient with continued pain epigastric; s/p ERCP with sphincterotomy, stent and stone removal -lap romie today -ivf 2. Transaminitis: 2/2 #1, continuing to improve -ivf -as above 3. Chronic afib: controlled, on coumadin outpatient; on hold currently -medical management 4. Coagulopathy: on coumadin; received vitamin K; inr improved 5. Hypertension: controlled -medical management -encourage weight loss 6. Constipation: -optimize bowel regimen 7. Hypochromic anemia: dilutional vs. other: no acute bleed -monitor and transfuse prn 8. Overweight: BMI: 29 -encourage lifestyle and diet optimization -encourage weight loss 9. Hyperlipidemia with aortic calcification: -continue medical management 10. LLL atelectasis: No sob, maintaining O2 sats -IS -ambulate -management per medical team Thank you, Problems: Subjective 24 Hr Interval Summary Pain and discomfort minimally epigastric. Nausea improving. Tolerated clear liquids. No vomiting. +Bowel function. No fevers, chills, cp, palpitations, sob , congested cough. Exam/Review of Systems Vital Signs Vitals Vital Signs Date Time Temp Pulse Resp B/P Pulse Ox O2 Delivery O2 Flow Rate FiO2 12/28/16 07:46 98.1 74 18 127/84 96 12/27/16 07:45 Nasal Cannula 2.0 Intake and Output 12/27/16 12/27/16 12/28/16 15:00 23:00 07:00 Intake Total 1060 ml 500 ml Balance 1060 ml 500 ml Exam Free Text/Dictation Constitutional: alert, oriented Psych: nl mood/affect, sad mood Head: atraumatic, normocephalic Eyes: nl lids, nl sclera, No icteric ENMT: mucosa pink and moist, nl nasal mucosa & septum Neck: non-tender, supple, No jvd Respiratory: clear to auscultation, diminished at base, normal air movement Cardiovascular: irregular rhythm, nl pulses, No regular rate and rhythm Gastrointestinal: bowel sounds, soft, tender (epigastric), No rebound or guarding Musculoskeletal: nl extremities to inspection, nl gait and stance Extremities: normal pulses, pitting pedal edema (+1) Neurological: nl mental status, nl speech, nl strength Skin: nl turgor, No rash or lesions Results Result Diagram: 12/28/1641912/28/16419 CHOLO IRIZARRY MD Dec 28, 2016 11:57
[2016-12-28] MEDS ORDERED: LIDOCAINE 2%/EPI 30 ML INJ ONE (12:07)
[2016-12-28] MEDS ORDERED: BUPIVACAINE 0.25% (MPF) 30 ML INJ ONE (12:08)
[2016-12-28] MEDS ORDERED: ROCURONIUM 50 MG INJ ONE (12:13)
[2016-12-28] MEDS ORDERED: PROPOFOL 20 ML ONE (12:13)
[2016-12-28] MEDS ORDERED: MIDAZOLAM 1 MG/ML 2 ML INJ ONE (12:14)
[2016-12-28] MEDS ORDERED: LIDOCAINE 1% (MDV) 20 ML INJ ONE ×2 (12:14→12:21)
[2016-12-28] MEDS ORDERED: ROPIVACAINE 0.2% 20 ML VIAL ONE (12:18)
[2016-12-28] MEDS ORDERED: FAMOTIDINE 20 MG INJ ONE (12:41)
[2016-12-28] MEDS ORDERED: ONDANSETRON 4 MG INJ ONE (12:41)
[2016-12-28] MEDS ORDERED: DEXAMETHASONE 4 MG/ML 1 ML INJ ONE (12:41)
[2016-12-28] MEDS ORDERED: PHENYLephrine (100 MCG/ML) 5ML SYG ONE (12:44)
[2016-12-28] MEDS ORDERED: BUPIVACAINE 0.25% (MPF) 30 ML INJ INJ ONE (12:53)
[2016-12-28] MEDS ORDERED: LIDOCAINE 2%/EPI MPF (SDV) 20 ML VIAL INJ ONE (12:53)
[2016-12-28] MEDS ORDERED: LABETALOL HCL 20MG INJ ONE (13:08)
[2016-12-28] MEDS ORDERED: SUGAMMADEX SODIUM 200 MG/2 ML VIAL IV ONE (14:06)
--- NOTE | 2016-12-28 14:15 | OPR ---
Date/Time of Note Date/Time of Note DATE: 12/28/16 TIME: 14:08 Operative Report Procedure Date: Dec 28, 2016 Estimated Blood Loss: minimal Transfusion Required: no Complications: no Procedure Description Preoperative Diagnosis: Cholelithiasis, choledocholithiasis status post ERCP, cholecystitis BMI 29 Postoperative Diagnosis: Cholelithiasis, choledocholithiasis status post ERCP, cholecystitis BMI 29 Abnormal liver color Operation(s) Performed: 1. 3 port laparoscopic cholecystectomy 2. Laparoscopic liver wedge resection biopsy 3. Local anesthetic [place], [id number] Surgeon: CHOLO IRIZARRY MD Anesthesia: general, local, & regional Anesthesiologist: Minh Zaman MD Estimated Blood Loss: 50 ml's Specimens: Liver Gallbladder Tubes/Drains: 19 [place] alec Complications: None Pt Condition Post Procedure: stable Disposition: PACU Indications: 66-year-old female with abdominal pain here for cholecystectomy as per consult and progress notes. Risks include but are not limited to bleeding, infection, abscess, seroma, damage to intestines, damage to the liver, damage to biliary tree, hernia formation, chronic pain, biloma, need for reoperations or further surgeries, MA , stroke, PE, DVT, pneumonia, organ failures, or even . Procedure Description: Patient was brought and placed supine on the operating table SCDs were placed, preoperative antibiotics were administered, all pressure points were well-padded , and after induction of anesthesia patient was prepped and draped in usual sterile fashion and timeout was performed. Incision was made in the supraumbilical region, Veress was safely inserted, and after a negative SIP test , abdomen was insufflated to 15mmHg. Veress was removed and 5mm port was safely inserted. Laparoscopy was performed with a 5 mm 30 scope. No injuries were identified. The liver looks somewhat abnormal color. Gallbladder is without evidence of section. 12 mm port is placed in subxiphoid under direct visualization followed by another 5 mm port in the right upper quadrant. All port sites were injected with quarter percent Marcaine with epi and 1% lidocaine prior to any incisions. Patient was placed in reverse Trendelenburg and right side up on gallbladder was retracted superolaterally. The gallbladder was large and distended. Using electrocautery and blunt dissection I was able to identify the cystic artery and cystic duct. The duct was dilated but tapered into the gallbladder. Full critical angle view was identified. Due to the large nature of the cystic duct top down approach was taken and the gallbladder was taken off the liver with electrocautery. Hemostasis was obtained. At this point cystic artery and duct were fully identified. There are was up twice proximally and once distally and dissected. The cystic duct was dilated with transected with Endo BEKAH white load 35 stapler. Gallbladder was placed in an Endo Catch bag and removed through the subxiphoid port site. There was complete hemostasis. Due to the abnormality of the liver decision was made to perform liver wedge resection which was done with electrocautery and scissor with complete hemostasis right after. The specimen was sent to pathology for further evaluation. 19F alec drain was placed through lateral incision to drain the liver and gb sites. 12 mm made port site fascia was closed with Endo Close of an 0 Vicryl in a [id number] manner. Ports and CO2 were removed under direct visualization. Next complete hemostasis. Wounds were thoroughly irrigated skin was closed with 4-0 Monocryl in subcuticular fashion. Dermabond was applied. Patient was extubated and transferred to recovery room in stable condition and all counts were correct and the end of the operation 2. Copies To: CC: EVELYNE VICTORIA MD; DANAE THORNTON MD- CHOLO IRIZARRY MD Dec 28, 2016 14:15
[2016-12-28] MEDS ORDERED: HYDROmorphONE (0.2 MG/ML) 10ML SYG IV ONE (14:20)
[2016-12-28] MEDS ORDERED: HYDROmorphONE (0.2 MG/ML) 10ML SYG IV PRN ×2 (15:00)
[2016-12-28] MEDS ORDERED: LABETALOL HCL 20MG INJ IV PRN (15:00)
[2016-12-28] MEDS ORDERED: ONDANSETRON 4 MG INJ IV PRN (15:00)
[2016-12-28] MEDS ORDERED: hydrALAzine 20 MG INJ IV PRN (15:00)
[2016-12-28] MEDS ORDERED: DIPHENHYDRAMINE 50 MG INJ IV PRN (15:00)
[2016-12-28] MEDS ORDERED: MEPERIDINE 25 MG INJ IV PRN (15:00)
[2016-12-29 00:34] VITALS: BP 132/76; RESP 19
[2016-12-29] MEDS: HYDROCODONE/APAP (5/325) TAB PO PRN ×3 (01:38→17:27)
[2016-12-29 05:36] LABS: BASOPHILS % 0.1 % (0.0-2.0); HEMATOCRIT 33.3 % (37.0-47.0); HEMOGLOBIN 10.8 g/dl (12.0-16.0); LYMPHOCYTES # 0.7 10^3/ul (0.8-2.9); LYMPHOCYTES % 8.8 % (15.0-51.0); MEAN CORPUSCULAR HEMOGLOBIN 28.3 pg (29.0-33.0); MEAN CORPUSCULAR HGB CONC 32.4 g/dl (32.0-37.0); MEAN CORPUSCULAR VOLUME 87.2 fl (82.0-101.0); MEAN PLATELET VOLUME 10.8 fl (7.4-10.4); MONOCYTE # 0.5 10^3/ul (0.3-0.9); MONOCYTES % 7.3 % (0.0-11.0); NEUTROPHILS % 83.5 % (39.0-77.0); PLATELET COUNT 213 10^3/UL (140-415); RED BLOOD COUNT 3.82 10^6/ul (4.20-5.40); RED CELL DISTRIBUTION WIDTH 12.8 % (11.5-14.5); WHITE BLOOD COUNT 7.4 10^3/ul (4.8-10.8)
[2016-12-29] MEDS: PIPER-TAZO 3.375 GM IV (PMX) 100 ML IVPB SCH ×2 (05:38→15:12)
[2016-12-29] MEDS: PANTOPRAZOLE (EC) 40 MG TAB PO SCH (05:38)
[2016-12-29 06:07] LABS: ALBUMIN 3.1 g/dl (3.3-4.9); ALBUMIN/GLOBULIN RATIO 0.93; BILIRUBIN,INDIRECT 0.5 mg/dl (0-1.1); BILIRUBIN,TOTAL 0.5 mg/dl (0.2-1.3); CALCIUM 8.8 mg/dl (8.4-10.2); CREATININE 0.72 mg/dl (0.44-1.00); MAGNESIUM 1.9 mg/dl (1.7-2.5); POTASSIUM 4.2 mmol/L (3.5-5.1); TOTAL PROTEIN 6.4 g/dl (6.1-8.1)
[2016-12-29 07:39] VITALS: BP 132/88; RESP 20
[2016-12-29] MEDS: HYDROmorphONE 1 MG/ML SYG IV PRN ×2 (08:01→16:00)
[2016-12-29] MEDS: LISINOPRIL 20 MG TAB PO SCH (09:06)
[2016-12-29] MEDS: METOPROLOL (XL) 50 MG TAB PO SCH (09:06)
[2016-12-29] MEDS: ENOXAPARIN 100 MG/ML SYG SC SCH (09:10)
--- NOTE | 2016-12-29 09:33 | PN ---
Date/Time of Note Date/Time of Note DATE: 12/29/16 TIME: 09:24 Assessment/Plan Lines/Catheters IV Catheter Type (from Nrs): Saline Lock Agustin in Place (from Nrs): No Assessment/Plan Chief Complaint/Hosp Course 1. Cholelithiasis & choledocholithiasis: MRCP shows dilated duct, LFT's improved , Tbili improved; patient with continued pain epigastric; s/p ERCP with sphincterotomy, stent and stone removal; lap romie 12/28; tolerating solid diet, + bowel function; JAJA serosanguineous -IS -ambulation -pain management -ice pack to abd wall -patient may be discharged home w drain per medical team. to follow in our office in 1-2 weeks 2. Transaminitis: 05/27 #1, min bump in ast -ivf -as above 3. Chronic afib: controlled, on coumadin outpatient; on hold currently -medical management 4. Coagulopathy: to restart coumadin 5. Hypertension: controlled -medical management -encourage weight loss 6. Constipation: -optimize bowel regimen 7. Hypochromic anemia: dilutional vs. other: no acute bleed -monitor and transfuse prn 8. Overweight: BMI: 29 -encourage lifestyle and diet optimization -encourage weight loss 9. Hyperlipidemia with aortic calcification: -continue medical management 10. LLL atelectasis: No sob, maintaining O2 sats -IS -ambulate -management per medical team 11. Hypoalbuminemia: -optimize nutrition Thank you. Patient seen and examined in collaboration with Dr. Jaime Martin. Problems: Subjective 24 Hr Interval Summary S/p lap romie yesterday. Feeling well. Abd pain improved, no drainage from incision sites, + gas. Tolerating solid diet without n/v. Ambulating and using IS. No fevers, chills, sob, cp, palpations, abdominal pain/distention, diarrhea , dysuria. JAJA drain serosanguineous. Exam/Review of Systems Vital Signs Vitals Vital Signs Date Time Temp Pulse Resp B/P Pulse Ox O2 Delivery O2 Flow Rate FiO2 12/29/16 14:59 98.6 70 20 153/86 99 12/29/16 02:18 2.0 12/28/16 20:00 Nasal Cannula Intake and Output 12/28/16 12/28/16 12/29/16 15:00 23:00 07:00 Intake Total 1550 ml 350 ml 650 ml Output Total 75 ml 80 ml 55 ml Balance 1475 ml 270 ml 595 ml Exam Free Text/Dictation Constitutional: alert, oriented, Psych: nl mood/affect, pleasant Head: atraumatic, normocephalic Eyes: nl lids, nl sclera, No icteric ENMT: mucosa pink and moist, nl nasal mucosa & septum Neck: non-tender, supple, No jvd Respiratory: clear to auscultation, diminished at base, normal air movement Cardiovascular: irregular rhythm, nl pulses, No regular rate and rhythm Gastrointestinal: bowel sounds, soft, min tender (incision sites), no drainage/ oozing from incision sites, JAJA with serosanguineous drainage No rebound or guarding Musculoskeletal: nl extremities to inspection, nl gait and stance Extremities: normal pulses, pitting pedal edema (+1) Neurological: nl mental status, nl speech, nl strength Skin: nl turgor, No rash or lesions; as above Results Result Diagram: 12/29/16 04312/29/16 043 TOMMY THACKER NP Dec 29, 2016 09:33
--- NOTE | 2016-12-29 09:34 | PN ---
DATE: 12/29/2016 SUBJECTIVE DATA: Patient is feeling better. Had some pain and received shot this morning. No more nausea. No shortness of breath. OBJECTIVE DATA: VITAL SIGNS: Temperature 98.7, pulse 87, respirations 20, blood pressure 132/88, oxygen saturation 99 percent on 2 L nasal cannula oxygen. GENERAL: Well-developed, well-nourished female, in no acute distress. Lying in bed. CHEST: Clear to auscultation bilaterally. HEART: Irregularly irregular. A 2/6 holosystolic murmur. ABDOMEN: Decreased bowel sounds. Soft. Wounds are clean, dry, and intact. Drain is in place in the right upper quadrant. There is jcgh-ek-smieqwoc tenderness to palpation. LABORATORY EXAMINATION: White blood cell count 7.4, hemoglobin 10.8, hematocrit 33.3, platelets 213. Sodium 136, potassium 4.2, chloride 103, bicarbonate 28, BUN of 11, creatinine 0.72, blood sugar 136, calcium 8.8, magnesium 1.9. Total bilirubin 0.5, AST of 49, ALT of 63, alkaline phos 77, albumin 3.1. ASSESSMENT AND PLAN: 1. Cholelithiasis, status post laparoscopic cholecystectomy. The patient is doing well, still has [id number] pain, receiving intravenous Dilaudid. We will see if surgeon will advance diet today and if stable pt may be d/c'd home today. 2. Atrial fibrillation/hypertension, remains stable. We will restart patient's Coumadin and give 5 mg x1 today. 3. Acute congestive heart failure. This resolved with stopping intravenous fluids and giving Lasix. No need for any today. Continue to follow. 4. Hypomagnesemia, resolved with replacement. 5. Hypokalemia, resolved with replacement. We will continue to follow. Dictated By: Gutierrez Burch MD /aide/tania /Document#: [id number] CADEN
[2016-12-29 14:59] VITALS: BP 153/86; RESP 20
--- NOTE | 2016-12-29 15:21 | CONS ---
Date/Time of Note Date/Time of Note DATE: 12/29/16 TIME: 15:19 Assessment/Plan Assessment/Plan Additional Assessment/Plan Chief Complaint/Hosp Course Impression: 1. Cholelithiasis: MRCP shows dilated duct, LFT's improved, Tbili improved; patient with continued pain epigastric; s/p ERCP with sphincterotomy, stent and stone removal 2. Abdominal pain 2/2 above: no n/v 3. Transaminitis: 2/2 #1, continuing to improve 4. Chronic afib: controlled, 5. Coagulopathy: on coumadin; received vitamin K; inr improved 6. Hypertension: controlled 7. s/p liver biopsy Recommendations: - s/p lap cholecystectomy -continue pain management -ivf - diet per surgery as surgery decide on timing of surgery. - bowel regimen - continue supportive care - Patient needs her stent to be removed after 3 months which were discussed with the patient and the daughter by Dr. Victoria review path,when ready Consultation Date/Type/Reason Admit Date/Time Dec 26, 2016 at 16:53 Initial Consult Date 12/23/16 Type of Consultation: GI Referring Provider: DANAE THORNTON MD- 24 HR Interval Summary Constitutional: improved Exam/Review of Systems Vital Signs Vitals Vital Signs Date Time Temp Pulse Resp B/P Pulse Ox O2 Delivery O2 Flow Rate FiO2 12/29/16 14:59 98.6 70 20 153/86 99 12/29/16 02:18 2.0 12/28/16 20:00 Nasal Cannula Intake and Output 12/28/16 12/28/16 12/29/16 15:00 23:00 07:00 Intake Total 1550 ml 350 ml 650 ml Output Total 75 ml 80 ml 55 ml Balance 1475 ml 270 ml 595 ml Exam Constitutional: alert, oriented, well developed Psych: nl mood/affect, no complaints Head: atraumatic, normocephalic Eyes: EOMI, PERRL, nl conjunctiva, nl lids, nl sclera ENMT: nl external ears & nose, nl lips & teeth, nl nasal mucosa & septum Neck: non-tender, supple Respiratory: clear to auscultation, normal air movement Cardiovascular: nl pulses, regular rate and rhythm Gastrointestinal: nl liver, spleen, non-tender, soft Musculoskeletal: nl extremities to inspection, nl gait and stance Extremities: normal pulses 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, nl mental status, nl speech, nl strength Skin: nl turgor, No rash or lesions Lymph: nl lymph nodes Results Result Diagram: 12/29/1643612/29/16436 Results 24 hrs Laboratory Tests Test 12/29/16 04:37 White Blood Count 7.4 # Red Blood Count 3.82 L Hemoglobin 10.8 L Hematocrit 33.3 L Mean Corpuscular Volume 87.2 Mean Corpuscular Hemoglobin 28.3 L Mean Corpuscular Hemoglobin Concent 32.4 Red Cell Distribution Width 12.8 Platelet Count 213 Mean Platelet Volume 10.8 H Neutrophils % 83.5 H Lymphocytes % 8.8 L Monocytes % 7.3 Eosinophils % 0.0 Basophils % 0.1 Nucleated Red Blood Cells % 0.0 Neutrophils # (Manual) 6.2 Lymphocytes # 0.7 L Monocytes # 0.5 Eosinophils # 0.0 Basophils # 0.0 Nucleated Red Blood Cells # 0.0 Sodium Level 136 Potassium Level 4.2 Chloride Level 103 Carbon Dioxide Level 28 Anion Gap 9 Blood Urea Nitrogen 11 Creatinine 0.72 Glucose Level 136 # Calcium Level 8.8 Magnesium Level 1.9 Total Bilirubin 0.5 Direct Bilirubin 0.00 Indirect Bilirubin 0.5 Aspartate Amino Transf (AST/SGOT) 49 H Alanine Aminotransferase (ALT/SGPT) 63 Alkaline Phosphatase 77 Total Protein 6.4 Albumin 3.1 L Globulin 3.30 H Albumin/Globulin Ratio 0.93 Medications Medications Current Medications Metoprolol Succinate (Toprol Xl) 50 mg DAILY PO Last administered on 12/29/16 09:06; Admin Dose 50 MG; Start 12/23/16 at 09:00 Lisinopril (Zestril) 20 mg AM PO Last administered on 12/29/16 09:06; Admin Dose 20 MG; Start 12/23/16 at 09:00 Ondansetron HCl (Zofran Inj) 4 mg Q4 PRN IV NAUSEA AND/OR VOMITING Last administered on 12/27/16 20:38; Admin Dose 4 MG; Start 12/22/16 at 13:00 Hydralazine HCl (Apresoline) 5 mg Q6 PRN IV sbp>180 or dbp>95; Start 12/22/16 at 13:00 Acetaminophen (Tylenol Tab) 650 mg Q6 PRN PO PAIN AND OR ELEVATED TEMP; Start 12/22/16 at 13:00 Lorazepam 0.5 mg 0.5 mg HS PRN IV insomnia Last administered on 12/24/16 19:40 ; Admin Dose 0.5 MG; Start 12/22/16 at 13:00 Piperacillin Sod/ Tazobactam Sod (Zosyn 3.375gm/ 100 ml (Pmx)) 100 ml @ 200 mls /hr Q8 IVPB Last administered on 12/29/16 15:12; Admin Dose 200 MLS/HR; Start 12/23/16 at 07:00 Enoxaparin Sodium (Lovenox) 90 mg Q12 SC Last administered on 12/29/16 09:10; Admin Dose 90 MG; Start 12/25/16 at 23:00 Pantoprazole (Protonix Tab) 40 mg DAILY@06 PO Last administered on 12/29/16 05: 38; Admin Dose 40 MG; Start 12/27/16 at 06:00 Hydromorphone HCl (Dilaudid) 0.5 mg Q2H PRN IV PAIN LEVEL 7-10 Last administered on 12/29/16 08:01; Admin Dose 0.5 MG; Start 12/28/16 at 14:30 Acetaminophen/ Hydrocodone Bitart (Kirby (5/325)) 1 tab Q6H PRN PO PAIN LEVEL 4 -6 Last administered on 12/29/16 11:20; Admin Dose 1 TAB; Start 12/28/16 at 14:30 Warfarin Sodium (Coumadin) 5 mg ONCE@17 PO ; Start 12/29/16 at 17:00; Stop at 23:00 EVELYNE VICTORIA MD Dec 29, 2016 15:21
[2016-12-29] MEDS ORDERED: WARFARIN 5 MG TAB PO SCH (17:00)
[2016-12-29] MEDS ORDERED: OXYC-279 PO (17:47)
--- NOTE | 2016-12-29 17:50 | PDOCDIS ---
Discharge Instructions DIAGNOSIS Discharge Diagnosis choledocholithiasis/cholelithiasis; pt s/p ERCP/sphincterotomy/stent and laparoscopic cholecystectomy CONDITION Patient Condition: Good HOME CARE INSTRUCTIONS: Diet Instructions: Low Fat /CholesterolSpecial Diet: Clear liquid diet ACTIVITY: Activity Restrictions: Slowly Increase Activity FOLLOW UP/APPOINTMENTS Follow-up Plan call Dr. Martin for f/u appt; call Dr. Burch for f/u appt in next 2-3wks; pt will need stent removal in 3months with DANAE Garcia MD- Dec 29, 2016 17:50
== END 2016-12-29 19:00 | disposition home health service (06) | DRG 417 ==
LOC: E/R 00:11 → INTOOBSV 09:07 → MS3 09:07 → MS1 12-23 05:16 → OBSVTOIN 12-26 16:53
PROVIDERS: ADMIT Internal Medicine; ATTEND Internal Medicine
PROC: 0F798DZ Dilation of Common Bile Duct with Intraluminal Device, Via Natural or Artificial Opening Endoscopic (ICD-10-PCS; 2016-12-23)
PROC: 0FC98ZZ Extirpation of Matter from Common Bile Duct, Via Natural or Artificial Opening Endoscopic (ICD-10-PCS; principal; 2016-12-23 11:30)
PROC: 0FT44ZZ Resection of Gallbladder, Percutaneous Endoscopic Approach (ICD-10-PCS; 2016-12-28)
PROC: 0FB04ZX Excision of Liver, Percutaneous Endoscopic Approach, Diagnostic (ICD-10-PCS; 2016-12-28)
DX: K80.70 Calculus of gallbladder and bile duct without cholecystitis without obstruction (principal); I50.21 Acute systolic (congestive) heart failure; I48.91 Unspecified atrial fibrillation; E83.42 Hypomagnesemia; K76.0 Fatty (change of) liver, not elsewhere classified; E66.3 Overweight; Z68.29 Body mass index [BMI] 29.0-29.9, adult; Z79.02 Long term (current) use of antithrombotics/antiplatelets; E78.5 Hyperlipidemia, unspecified; K59.00 Constipation, unspecified; R10.13 Epigastric pain; D64.9 Anemia, unspecified; E87.6 Hypokalemia; I11.0 Hypertensive heart disease with heart failure
CPT/HCPCS: 36415; 36600; 71010; 74181; 74330; 76705; 80053; 81001; 82150; 82803; 83690; 83735; 83880; 84436; 84479; 84484; 84703; 85025; 85610; 85730; 88304; 88307; 88313; 93005; 96365; 96375; J1940; C2617; C9113; G0378; J0690; J1100; J1170; J1650; J2060; J2250; J2270; J2370; J2405; J2543; J2765; J2795; J3010; J3475; J3480; J7030; J7040; Q9967

== ENCOUNTER 2017-06-14 08:50 | Emergency (ER) | END 2017-06-14 13:27 | disposition home or self-care (01) ==

== ENCOUNTER 2017-08-17 08:59 | Day surgery (SDC) | END 2017-08-17 14:03 | disposition home or self-care (01) ==

== ENCOUNTER 2018-01-06 23:15 | Inpatient (IN) | END 2018-01-13 13:00 | disposition home or self-care (01) | DRG 445 ==

== ENCOUNTER 2018-03-24 08:07 | Day surgery (SDC) | END 2018-03-24 13:20 | disposition home or self-care (01) ==

== ENCOUNTER 2018-10-07 19:45 | Inpatient (IN) | payer OTHER, MEDICAID ==
[~2018-10-07] VITALS: Ht 160 cm; Wt 88.1 kg
[~2018-10-07 19:45] MED LIST changes: +DILT120C79 PO; +HYDR-4011 PO; -HYDR-906 PO; -LISI1TAB6 PO; -LOVA20TA PO; -METO50TA16 PO; +ONDA4TAB13 PO; -ONDA4TAB8 PO; -WARF4TAB52 PO; +WARF4TAB64 PO
[2018-10-07] MEDS ORDERED: SOD CHLORIDE 0.9% 1,000 ML IV STA (20:10)
[2018-10-07] MEDS ORDERED: HYDROmorphONE 1 MG/ML SYG IV ONE (20:30)
[2018-10-07] MEDS ORDERED: ONDANSETRON 4 MG INJ IV ONE (20:30)
--- NOTE | 2018-10-07 20:59 | ERD ---
ER Documentation Chief Complaint Chief Complaint STATES POSSIBLE SYNCOPAL EPISODE YESTERDAY, LT KNEE PAIN AND SWELLING HPI This is a 68-year-old female who presents to the emergency room with left knee pain. The patient is on Coumadin for A. fib. She states that yesterday when standing up suddenly she blacked out and fell to the ground. This was witnessed. The patient injured her left knee. She describes bilateral lower distal tib-fib pain and significant pain and swelling to the left knee. The patient denies head trauma headache vision changes. No prodrome of chest pain or shortness of breath. No recent bleeding, hematemesis or melena. Pain is 8 out of 10, throbbing, constant. ROS All systems reviewed and are negative except as per history of present illness. Medications Home Meds Active Scripts Diltiazem Hcl* (Diltiazem XT) 120 Mg Capsule.sa, 120 MG PO DAILY for 90 Days, #30 CAP Prov:DANAE THORNTON MD- 01/13/18 Ondansetron Hcl* (Zofran*) 4 Mg Tab, 4 MG PO Q6H PRN for NAUSEA AND OR VOMITING, #30 TAB Prov:DANAE THORNTON MD- 01/13/18 Hydrocodone/Acetaminophen (Decherd 5-325 Tablet) 1 Each Tablet, 1 EACH PO Q6 PRN for PAIN LEVEL 6-10, #100 TAB Prov:DANAE THORNTON MD- 01/13/18 Reported Medications Warfarin Sodium* (Coumadin*) 3 Mg Tablet, 3 MG PO TUE,THUR,SAT, TAB 08/17/17 Warfarin Sodium* (Warfarin Sodium*) 4 Mg Tablet, 4 MG PO MON,WED,TUE,SUN, TAB 08/17/17 Allergies Allergies: Coded Allergies: No Known Allergy (Unverified , 01/06/18) PMhx/Soc History of Surgery: Yes (ERCP, LAP. CHOLECYSTECTOMY, C/S X1) Anesthesia Reaction: No Hx Neurological Disorder: No Hx Respiratory Disorders: No Hx Cardiac Disorders: No Hx Psychiatric Problems: No Hx Miscellaneous Medical Probl: No Hx Alcohol Use: No Hx Substance Use: No Hx Tobacco Use: No Smoking Status: Never smoker FmHx Family History: No diabetes Physical Exam Vitals Vital Signs Date Temp Pulse Resp B/P (MAP) Pulse Ox O2 O2 Flow FiO2 Time Delivery Rate 10/07/18 Nasal 2 22:19 Cannula 6/15/19 79 16 141/77 98 Nasal 2.0 22:18 (98) Cannula 10/07/18 92 16 131/85 98 Room Air 20:08 (100) 10/07/18 97.8 103 21 116/67 97 19:50 (83) Physical Exam Airway is intact Bilateral breath sounds Strong distal pulses No obvious deficits General: Well developed, well nourished, no acute distress Head: Normocephalic, atraumatic Eyes: Pupils equally reactive, EOM intact ENT: Moist mucous membranes Neck: Supple, no lymphadenopathy, No midline tenderness, deformities, step-offs to the cervical spine, full active and passive range of motion without midline pain. Respiratory: Lungs clear bilaterally, no distress, no chest wall tenderness, no crepitus Cardiovascular: Irregularly irregular, no murmurs, rubs, or gallops Abdominal: Soft, non-tender, non-distended, no peritoneal signs, pelvis is stable : Deferred MSK: No edema, no unilateral swelling, no midline tenderness deformities or step-offs to the thoracolumbar spine. The patient has significant ecchymoses, effusion and swelling of the left knee. Limited range of motion secondary to pain. Mild soft tissue tenderness to the distal tibia and fibula of bilateral lower extremities. Both lower extremity's have strong distal pulses on the dorsalis pedis and posterior tibial vessels. Neurologic: Alert and oriented, moving all extremities, normal speech, no focal weakness, no cerebellar signs Skin: No ecchymoses or bruising to the chest or abdomen Psych: Normal mood Result Diagram: 10/07/18203610/07/182036 Results 24 hrs Laboratory Tests Test 10/07/18 20:37 White Blood Count 6.7 10^3/ul Red Blood Count 4.21 10^6/ul Hemoglobin 11.5 g/dl Hematocrit 36.4 % Mean Corpuscular Volume 86.5 fl Mean Corpuscular Hemoglobin 27.3 pg Mean Corpuscular Hemoglobin Concent 31.6 g/dl Red Cell Distribution Width 13.4 % Platelet Count 225 10^3/UL Mean Platelet Volume 10.0 fl Immature Granulocytes % 0.200 % Neutrophils % 59.4 % Lymphocytes % 26.7 % Monocytes % 9.9 % Eosinophils % 3.0 % Basophils % 0.8 % Nucleated Red Blood Cells % 0.0 /100WBC Immature Granulocytes # 0.010 10^3/ul Neutrophils # 4.0 10^3/ul Lymphocytes # 1.8 10^3/ul Monocytes # 0.7 10^3/ul Eosinophils # 0.2 10^3/ul Basophils # 0.1 10^3/ul Nucleated Red Blood Cells # 0.0 10^3/ul Prothrombin Time 27.4 Sec Prothrombin Time Ratio 2.1 INR International Normalized Ratio 2.54 Activated Partial Thromboplast Time 44.2 Sec Sodium Level 140 mmol/L Potassium Level 4.1 mmol/L Chloride Level 103 mmol/L Carbon Dioxide Level 28 mmol/L Anion Gap 9 Blood Urea Nitrogen 28 mg/dl Creatinine 1.05 mg/dl Est Glomerular Filtrat Rate mL/min 52 mL/min Glucose Level 118 mg/dl Calcium Level 8.7 mg/dl Troponin I < 0.012 ng/ml Current Medications Medications Dose Sig/Anali Start Time Status Last (Trade) Ordered Route PRN Stop Time Admin Dose Reason Admin Sodium 1,000 ml @ Q1H STAT 10/07/18 DC 10/07/18 Chloride 1,000 mls/hr IV 20:10 20:44 10/07/18 21:09 0.5 mg ONCE ONCE 10/07/18 DC 10/07/18 Hydromorphone IV 20:30 20:44 HCl 10/07/18 20:31 (Dilaudid) Ondansetron 4 mg ONCE ONCE 10/07/18 DC 10/07/18 HCl (Zofran IV 20:30 20:44 Inj) 10/07/18 20:31 Ondansetron 4 mg ER BRIDGE 10/07/18 HCl (Zofran PRN IV 22:30 Inj) NAUSEA/VOMITI 10/08/18 22:29 NG 650 mg ER BRIDGE 10/07/18 Acetaminophen PRN PO 22:30 (Tylenol .MILD PAIN 10/08/18 22:29 Tab) 1-3 OR TEMP Procedures/MDM EKG, MONITORS, & DIAGNOSTIC IMAGING: EKG: I reviewed and interpreted a 12-lead EKG. Rhythm: A. fib, rate controlled ST Changes: No contiguous ST segment elevations T waves: No contiguous T wave inversions Impression: No evidence of acute cardiac ischemia Chest x-ray: I reviewed and interpreted a 1 view of the chest Mediastinum: No enlargement Cardiac silhouette: No cardiomegaly Airspace: Clear lung larkin bilaterally without evidence of pneumothorax Bones: No evidence of fracture CT brain: IMPRESSION: 1. No acute intracranial hemorrhage or extra-axial fluid collection. 2. Minimal generalized cerebral volume loss. 3. Partially empty sella turcica. Further findings as detailed above. RPTAT: HVF XR left knee IMPRESSION: No evidence of fracture. Osteopenia. Anterior soft tissue swelling. XR left tib/fib IMPRESSION: No evidence of fracture. Osteopenia. XR right tib/fib IMPRESSION: No evidence of fracture. Osteopenia. PROCEDURES: Splint Application Note: Splint type: Knee immobilizer Extremity: Left leg Indication: Likely fracture The patient was consented at bedside prior to splint application and states understanding of risks, benefits, and alternatives. The patient was neurovascularly intact prior to and status post application of the splint. The patient tolerated the procedure well and there were no complications. MEDICAL DECISION MAKING: The patient presents with what appears to be an orthostatic episode of syncope versus near syncope. The patient does take Coumadin. While she does not have any obvious evidence of head trauma I would recommend CT imaging of the brain. Patient has obvious evidence of left knee effusion that is likely traumatic with strong concern for either patellar fracture versus tibial plateau fracture. No evidence of C-spine injury. The patient does not meet high-risk criteria and based on NEXUS cervical spine criteria there is no indication for cervical spine imaging at this time. The patient warrants x-ray imaging, likely immobilization. Admission for evaluation of syncope. The patient likely requires orthopedic surgical consultation given the appearance of the left knee. ER COURSE: * Laboratory testing and diagnostic imaging is unremarkable. Pain is well controlled. Immobilizer placed. * My review of the x-ray there is some apparent possible patella aristides. Consider possible patellar tendon disruption however the patient did ambulate on the lower extremity making this less likely. CT imaging to be ordered to rule out tibial plateau fracture. The patient warrants inpatient hospitalization. Nonemergent orthopedic surgery consultation can be obtained on inpatient basis. CT be followed by admitting team. CONSULTATION: None DISPOSITION PLAN: Accepting care team and consultations: I discussed the current laboratory data, diagnostic imaging and emergency care provided. Admitting team: Dr. Cooper Admitting team indication: Insurance directed, [place] Departure Diagnosis: Primary Impression: Syncope Syncope type: unspecified Qualified Codes: R55 - Syncope and collapse Additional Impressions: Atrial fibrillation Atrial fibrillation type: chronic Qualified Codes: I48.2 - Chronic atrial fibrillation Contusion of left knee Encounter type: initial encounter Qualified Codes: S80.02XA - Contusion of left knee, initial encounter Condition: Stable TERESO MITCHELL MD Oct 07, 2018 20:59
[2018-10-07] MEDS ORDERED: ACETAMINOPHEN 325 MG TAB PO PRN ×2 (22:30→23:30)
[2018-10-07] MEDS ORDERED: ONDANSETRON 4 MG INJ IV PRN (22:30)
[2018-10-07] MEDS ORDERED: HYDROCODONE/APAP (5/325) TAB PO PRN (23:30)
[2018-10-07] MEDS ORDERED: morphine 2 MG INJ IV PRN (23:30)
[2018-10-08] VITALS (18 sets, daily range): BP systolic 110–143; BP diastolic 55–78; PULSE 67–113; RESP 18–20; Ht 160 cm; Wt 88.1 kg
[2018-10-08] MEDS: ONDANSETRON 4 MG INJ IV PRN ×2 (00:34→07:58)
[2018-10-08] MEDS: SOD CHLORIDE 0.9% 1,000 ML IV SCH ×2 (00:46→09:42)
[2018-10-08] MEDS ORDERED: HYDROmorphONE 1 MG/ML SYG IV PRN (03:00)
[2018-10-08] MEDS ORDERED: DILTIAZEM (CD) 120 MG CAP PO SCH (09:00)
--- NOTE | 2018-10-08 12:07 | QN ---
Documentation Comment H&P dict a/p 1. sncope? likely orthostasis, await echo 2. L knee pre-patellar hematoma, trial o ambulation KONRAD ORTEGA MD Oct 08, 2018 12:07
--- NOTE | 2018-10-08 12:15 | PDOCDIS ---
Discharge Instructions DIAGNOSIS Discharge Diagnosis 1. fall related to orthostatic hypotension (blood pressure drop with standing) 2. L knee bruise CONDITION [id number] Patient Condition: Inexm1q Good HOME CARE INSTRUCTIONS: [id number] Diet Instructions: Eused4j Regular ACTIVITY: Getmb0Oy Activity Restrictions: [id number] Slowly Increase Activity FOLLOW UP/APPOINTMENTS Follow-up Plan 1. pcp 1 week KONRAD ORTEGA MD Oct 08, 2018 12:15
--- NOTE | 2018-10-08 15:49 | HP ---
DATE OF ADMISSION: 10/07/2018 CHIEF COMPLAINT: Fall. HISTORY OF PRESENT ILLNESS: Ms. Singh presents to the emergency room at [facility] after haley staining a fall. She states on the day prior to presentation, she was standing up from a chair and s he became unsteady and fell, landing on her left knee. She believes that there was loss of conscious ness, though she was able to stand up and walk again right away. She denies any associated chest mariola n, pressure, discomfort. She states, however, that since this fall she has been having ongoing left knee pain with associated swelling. However, she was able to walk around the house somewhat; however , the swelling worsened and she developed blistering over the left knee and became concerned, coming here to the hospital. PAST MEDICAL HISTORY: Significant for atrial fibrillation, hypertension. MEDICATIONS: On outpatient include: 1. Warfarin 2. Diltiazem. ALLERGIES: NO KNOWN DRUG ALLERGIES. SOCIAL HISTORY: The patient lives at home in [place] with her and cousin. Independent in a ctivities of daily living. Uses a cane, continues to drive. Denies tobacco, alcohol, or illicit elio g use. FAMILY HISTORY: Noncontributory. REVIEW OF SYSTEMS: Five systems are reviewed and found not to be revealing. PHYSICAL EXAMINATION: VITAL SIGNS: Blood pressure 118/75, pulse rate 94, respirations 20, temperature is 98.2. GENERAL: Pleasant woman in no acute distress. Alert and oriented x3. HEENT: Normocephalic, atraumatic without evident scleral icterus, perioral cyanosis. Mucous membran es are moist. NECK: Soft Supple without masses. No evidence of jugular venous distention or carotid bruits. Ther e is no symptomatology associated with carotid sinus hypersensitivity on either active motion or palp ation. CHEST: Clear to auscultation and percussion bilaterally. HEART: Irregular rhythm, S1-S2, no added sounds. ABDOMEN: Soft, nontender, nondistended without palpable hepatosplenomegaly. EXTREMITIES: Without clubbing, cyanosis, or edema. There is a large swelling with bruising associat ed over the left knee; however, patient will actively bend the knee to approximately 20 degrees of fl exion and will extend the knee without difficulty. SKIN: Otherwise without rashes. NEUROLOGIC: Grossly intact. LABORATORY STUDIES: Reveal a hemoglobin of 10 g/dL, white count of 7300, platelets of 208,000. INR is 2.1. Sodium 140, potassium 4.1, chloride 103, bicarbonate 28, BUN 28, creatinine 1.0. Glucose 11 8. X-rays of the left knee did not reveal any fracture. CT scan does show a large prepatellar hemat ignacia. Chest x-ray and head CT are normal. ASSESSMENT AND PLAN: 1. Presumed syncopal fall. Await echocardiogram. Most likely scenario is orthostatic hypotension. We will give a trial of orthostatic vitals and have the patient ambulate. Presuming a relatively no rmal echocardiogram, anticipate discharge to home later today. 2. Left knee bruising. This does show some blistering; however, will withhold warfarin at this time . Anticipate that this will spontaneously resolve over the course of the next couple of weeks. The patient will take a 1-week holiday from warfarin while waiting for this to improve. 3. Observation status, anticipate discharge to home this p.m. Dictated By: KONRAD ORTEGA MD RER/NTS Conf#: [id number] DID#: [id number]
--- NOTE | 2018-10-08 21:01 | RADRPT ---
Echocardiogram Report [id number] : 1950 (68y 5m)Study Date: 10/08/2018 7:20:50 AM Gender: FAccession #: [id number] Tech: Sonrda Kim [facility] Location: 2 Ref.Physician: KONRAD ORTEGA Height(Cm): BSA: Weight(Kg): Quality: Technically Difficult StudyOrder Physician: KONRAD ORTEGA Account #: Procedures: Echocardiographic Report: Transthoracic echocardiogram with complete 2D, M-Mode, and doppler examination. Indications: Syncope. Measurements: 2D/M Mode Doppler Measurement Value Normal Range Measurement Value Normal Range LVIDd 2D 4.7 [ 3.8 - 5.2 ] cm AV Peak Juan 1.5 [ 100.0 - 170.0 ] cm/sec LVIDs 2D 3.0 [ 2.2 - 3.5 ] cm AV Peak PG 8.0 [ 2.0 - 9.0 ] mmHg LVPWd 2D 1.4 [ 0.6 - 0.9 ] cm LVOT Peak Juan 0.9 [ 70.0 - 110.0 ] cm/sec IVSd 2D 1.3 [ 0.6 - 0.9 ] cm LVOT Peak PG 3.0 [ 2.0 - 6.0 ] mmHg AoR Diam 2D 2.9 [ 2.3 - 3.1 ] cm MV E Peak Juan 1.0 [ 60.0 - 130.0 ] cm/sec EDV 2D 104.0 [ 46.0 - 106.0 ] ml MV Decel Time 176 [ 104 - 258 ] msec ESV 2D 33.6 [ 14.0 - 42.0 ] ml TR Peak Juan 2.9 [ 100.0 - 280.0 ] cm/sec EF 2D 67.7 [ 54.0 - 74.0 ] percent TR Peak PG 34.0 mmHg LA Dimen 2D 4.9 [ 2.7 - 3.8 ] cm RVSP 44.0 [ 10.0 - 36.0 ] mmHg RA Pressure 10.0 mmHg Findings: Left Ventricle: Normal left ventricular systolic function. Normal left ventricular cavity size. Normal left ventricular wall thickness. Ejection fraction is visually estimated at 65 %. Abnormal Diastolic Function. Right Ventricle: Normal right ventricular size. Normal right ventricular systolic function. Left Atrium: There is moderate enlargement of left atrium. Right Atrium: The right atrium is normal in size. Mitral Valve: Normal appearance and function of the mitral valve with trace physiologic regurgitation. Aortic Valve: Normal appearance of the aortic valve. No significant aortic stenosis or insufficiency. Tricuspid Valve: Normal appearance of the tricuspid valve. The estimated Peak RVSP is 44 mmHg. There is mild tricuspid regurgitation. Pulmonic Valve: Pulmonic valve not well visualized. Pericardium: Normal pericardium with no significant pericardial effusion. Aorta: Normal aortic root. IVC: Normal size and normal respiratory collapse consistent with normal right atrial pressure. Conclusions: Normal left ventricular systolic function. Normal left ventricular cavity size. Normal left ventricular wall thickness. Ejection fraction is visually estimated at 65 %. Abnormal Diastolic Function. Normal appearance and function of the mitral valve with trace physiologic regurgitation. Normal appearance of the aortic valve. No significant aortic stenosis or insufficiency. Electronically Signed By: Kt Garcia 2018-10-08 21:01:00 PDT
--- NOTE | 2018-10-09 01:23 | DS ---
Date/Time of Note Date/Time of Note DATE: 10/09/18 TIME: : Discharge Summary Admission/Discharge Info Admit Date/Time Oct 07, 2018 at 23:55 Discharge Date/Time Oct 08, 2018 at 23:22 Discharge Diagnosis 1. fall related to orthostatic hypotension (blood pressure drop with standing) 2. L knee bruise Patient Condition: Good Hospital Course patient admitted with [presumed syncopal fall, echo normal, no arrythmia had left knee hematome, but able to walk without assistance Home Meds Active Scripts Diltiazem Hcl* (Diltiazem XT) 120 Mg Capsule.sa, 120 MG PO DAILY for 90 Days, #30 CAP Prov:GUTIERREZ BURCH MD- 01/13/18 Ondansetron Hcl* (Zofran*) 4 Mg Tab, 4 MG PO Q6H PRN for NAUSEA AND OR VOMITING, #30 TAB Prov:GUTIERREZ BURCH MD- 01/13/18 Hydrocodone/Acetaminophen ([place] 5-325 Tablet) 1 Each Tablet, 1 EACH PO Q6 PRN for PAIN LEVEL 6-10, #100 TAB Prov:GUTIERREZ BURCH MD- 01/13/18 Reported Medications Warfarin Sodium* (Coumadin*) 3 Mg Tablet, 3 MG PO TUE,THUR,SAT, TAB 08/17/17 Warfarin Sodium* (Warfarin Sodium*) 4 Mg Tablet, 4 MG PO MON,WED,FRI,SUN, TAB 08/17/17 Follow-up Plan 1. pcp 1 week Primary Care Provider Gutierrez Burch Pending Labs Laboratory Tests Test 10/08/18 05:01 White Blood Count 7.3 10^3/ul (4.8-10.8) Red Blood Count 3.61 10^6/ul (4.20-5.40) Hemoglobin 10.0 g/dl (12.0-16.0) Hematocrit 31.3 % (37.0-47.0) Mean Corpuscular Volume 86.7 fl (82.0-101.0) Mean Corpuscular Hemoglobin 27.7 pg (29.0-33.0) Mean Corpuscular Hemoglobin Concent 31.9 g/dl (32.0-37.0) Red Cell Distribution Width 13.2 % (11.5-14.5) Platelet Count 208 10^3/UL (140-415) Mean Platelet Volume 10.0 fl (7.4-10.4) Immature Granulocytes % 0.300 % (0.001-0.429) Neutrophils % 79.5 % (39.0-77.0) Lymphocytes % 11.5 % (15.0-51.0) Monocytes % 7.4 % (0.0-11.0) Eosinophils % 0.8 % (0.0-7.0) Basophils % 0.5 % (0.0-2.0) Nucleated Red Blood Cells % 0.0 /100WBC (0.0-0.0) Immature Granulocytes # 0.020 10^3/ul (0.0-0.031) Neutrophils # 5.8 10^3/ul (1.6-7.5) Lymphocytes # 0.8 10^3/ul (0.8-2.9) Monocytes # 0.5 10^3/ul (0.3-0.9) Eosinophils # 0.1 10^3/ul (0.0-0.5) Basophils # 0.0 10^3/ul (0.0-0.1) Nucleated Red Blood Cells # 0.0 10^3/ul (0.0-0.0) KONRAD ORTEGA MD Oct 09, 2018 01:23
== END 2018-10-08 23:22 | disposition home or self-care (01) | DRG 312 ==
LOC: E/R 19:45 → 6WM 23:55
PROVIDERS: ADMIT Legal Medicine; ATTEND Legal Medicine
DX: I95.1 Orthostatic hypotension (principal); S80.02XA Contusion of left knee, initial encounter; W19.XXXA Unspecified fall, initial encounter; I10 Essential (primary) hypertension; Z79.02 Long term (current) use of antithrombotics/antiplatelets
CPT/HCPCS: 36415; 70450; 71045; 73562; 73590; 73700; 80048; 84484; 85025; 85610; 85730; 93005; 93306; 96374; 96375; 97162; J1170; J2270; J2405; J7030